=== PATIENT | female | born 1965 | race Caucasian/White ===

== ENCOUNTER 2024-11-27 07:12 | Day surgery (SDC) | payer OTHER, SELFPAY ==
[2024-11-27] VITALS (10 sets, daily range): BP systolic 113–145; BP diastolic 64–85; BMI 33.1
[2024-11-27] MEDS: LOW STRENGTH ASPIRIN 81 MG PO (08:00)
--- NOTE | 2024-11-27 15:32 | ITS.CL.PN ---
Addendum entered and electronically signed by Haroon Shirley MD 11/28/24 22:00:
Correction: access was 5F left distal radial artery (not right radial artery). The right radial artery was noted to be occluded on ultrasound. Distal left radial access with 5F sheath was selected in the hopes of minimizing risk of left radial
artery occlusion.
Original Note:
Bottom Liquor Attendant - Procedure Note
Procedure
Procedure Note:
CARDIAC CATHETERIZATION REPORT
Date of Procedure: 11/27/2024
Referring: Dr. Ricky Vieyra MD
Indication: severe aortic stenosis
PROCEDURE(S)
1. coronary angiography
ACCESS: 6F right radial artery (closure: radial band)
CATHETERS
1. 6F JR4
2. 6F JL3.5
MODERATE SEDATION: 20 minutes of moderate sedation was utilized. An independent medical transcription editor was present to assist with and help manage the patient's level of consciousness and physiologic status.
ULTRASOUND GUIDED VASCULAR ACCESS (right radial): Ultrasound was utilized for vascular access. The vessel was visualized under ultrasound and noted to be patent. An image of the vessel was stored permanently in the patient's medical record. Under
direct ultrasound guidance, vascular access was obtained using a modified Seldinger technique and a 6 Kyrgyz sheath was placed.
CORONARY ANGIOGRAPHY
Dominance: right
LM: large and normal
LAD: large vessel giving rise to a moderate caliber D1, small D2, and small D3. There are trivial luminal irregularities.
LCx: large vessel giving rise to a small OM1, large OM2, and moderate caliber OM3. There are trivial luminal irregularities.
RCA: large vessel giving rise to a large RPDA and very large RPL branch. There is mild non-obstructive disease.
RADIATION: dose 350 mGy; DAP 20.9 Gy*cm2; fluoroscopy time 4.8 min
CONCLUSIONS
1. Nonobstructive coronary artery disease in a right dominant system
RECOMMENDATIONS
1. expectant management after cardiac catheterization via right radial approach
2. proceed with workup for AVR
3. aggressive primary prevention of coronary artery disease
Copy to: Dr. Ricky Vieyra MD (internet cafe manager); Dr. Tanvi Hess MD (PCP)
Signed: Haroon Shirley MD, PhD
== END 2024-11-27 12:15 | disposition home or self-care (01) ==
LOC: CATH 07:12
PROVIDERS: ATTENDING PHYSICIAN Student in an Organized Health Care Education/Training Program; FAMILY PHYSICIAN Internal Medicine; OTHER PHYSICIAN Internal Medicine Cardiovascular Disease
DX: I25.10 Atherosclerotic heart disease of native coronary artery without angina pectoris (principal); I12.9 Hypertensive chronic kidney disease with stage 1 through stage 4 chronic kidney disease, or unspecified chronic kidney disease; N18.9 Chronic kidney disease, unspecified; E78.5 Hyperlipidemia, unspecified; Z79.82 Long term (current) use of aspirin
CPT/HCPCS: 99152; C1894; 76937; 93454; Q9967

== ENCOUNTER → 2024-12-04 09:10 | Outpatient (REF) | payer OTHER, SELFPAY | LOC: RAD 09:10 | PROVIDERS: ATTENDING PHYSICIAN Thoracic Surgery (Cardiothoracic Vascular Surgery); FAMILY PHYSICIAN Internal Medicine | DX: I35.0 Nonrheumatic aortic (valve) stenosis (principal); Z01.818 Encounter for other preprocedural examination | CPT/HCPCS: 75572; Q9967 ==

== ENCOUNTER 2024-12-12 04:59 | Inpatient (IN) | payer OTHER, SELFPAY ==
[2024-12-04 12:15] VITALS: BMI 33.6
[2024-12-04 12:55] LABS: % Eosinophils 2.2 % (0-6); % Immature Granulocytes 0.7 % (0-0.5); % Lymphocytes 23.5 % (20.5-51.1); % Monocytes 6.7 % (1.7-9.3); % Neutrophils 65.9 % (42.2-75.2); Absolute Basophils 0.1 10^3/uL (0-0.2); Absolute Eosinophils 0.2 10^3/uL (0-0.7); Absolute Immature Granulocytes 0.1 10^3/uL (0-0.05); Absolute Lymphocytes 2.4 10^3/uL (1.2-3.4); Absolute Monocytes 0.7 10^3/uL (0.1-0.6); Absolute Neutrophils 6.8 10^3/uL (1.4-6.5); Hematocrit 43.4 % (37.0-47.0); Hemoglobin 14.9 g/dL (12.0-16.0); Mean Corp Hgb Conc. 34.3 g/dL (33.0-37.0); Mean Corpuscular Hgb 30.7 pg (27.0-31.0); Mean Corpuscular Volume 89.5 fL (81.0-99.0); Mean Platelet Volume 10.4 fL (7.4-10.4); Nucleated Red Blood Cells % 0 %; Platelet Count 298 10^3/uL (130-400); Red Blood Cell Count 4.85 10^6/uL (4.20-5.40); Red Cell Dist. Width 13.4 % (11.5-14.5); White Blood Cell Count 10.3 10^3/uL (4.8-10.8)
[2024-12-04 12:57] LABS: Urine Albumin Trace (Neg - Trace); Urine Bilirubin Negative (Negative); Urine Character Slightly Cloudy (Clear); Urine Color Yellow; Urine Glucose Negative (Negative); Urine Ketone Trace (Negative); Urine Leukocyte Negative (Negative); Urine Nitrite Positive (Negative); Urine Occult Blood Negative (Negative); Urine Urobilinogen Negative (Neg - 1+)
[2024-12-04 13:11] LABS: Urine Bacteria Many (Negative); Urine Calcium Oxalate Crystals Present; Urine Red Blood Cell 0-2 /HPF (0-2); Urine Squamous Cell 0-2 /LPF (Few)
[2024-12-04 13:18] LABS: APTT 29.2 Sec (23.4-35.0); INR 1.12; PT 14.7 Sec (11.4-14.6)
[2024-12-04 13:22] LABS: ALT (SGPT) 23 U/L (0-35); AST (SGOT) 24 U/L (14-36); Albumin 4.6 g/dl (3.5-5.0); Alkaline Phosphatase 87 U/L (38-126); Blood Urea Nitrogen 19 mg/dl (7-17); Calcium 9.7 mg/dl (8.4-10.2); Carbon Dioxide 22 mmol/L (22-30); Chloride 105 mmol/L (98-107); Direct Bilirubin 0.1 mg/dl (0.0-0.4); Estimated Creatinine Clearance 71 ml/min; Glucose 90 mg/dl (70-99); Potassium 3.9 mmol/L (3.5-5.1); Sodium 139 mmol/L (135-145); Total Bilirubin 0.7 mg/dl (0.2-1.3); Total Protein 7.3 g/dl (6.3-8.2); eGFR > 60.00
--- NOTE | 2024-12-04 13:58 | CM ---
Chart reviewed. Met with the patient in PAT. 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 Patient is independent of ADLS, lives with her and son in a split level home, 1 MERRY, 0 DME. Reviewed preoperative and postoperative instructions and
restrictions, along with showering guidelines. Gave patient 2 soaps. Patient is agreeable to a home visit by CT Transitional RN. Plan is for the patient to return home with CT Transitional RN. CM to follow
[2024-12-04 14:25] LABS: Glycohemoglobin (HgbA1c) 5.4 % (4.0-5.6)
[2024-12-12] VITALS (13 sets, daily range): BP systolic 82–113; BP diastolic 55–66; BMI 32.8
[2024-12-12] MEDS: PROTONIX 40 MG PO (05:40)
[2024-12-12] MEDS: LOPRESSOR 25 MG PO (05:40)
[2024-12-12] MEDS: MAGNESIUM OXIDE 500 MG PO (05:40)
[2024-12-12] MEDS: BACTROBAN 2% OINTMENT 1 APPLIC NASAL ×2 (05:42→20:05)
--- NOTE | 2024-12-12 06:21 | W.CVOR.SURPR ---
CVOR Surgeon Immed Pre Op
-
I have examined this patient prior to performance of the scheduled procedure.
The patient's condition is unchanged from the time of the dictated/written History and
Physical and the patient is able to undergo the scheduled procedure.
Sternotomy AVR with likely aortic root enlargement
--- NOTE | 2024-12-12 06:31 | PTCARENOTE ---
Patient admitted into room 2266. Full admission completed, pt confirmed 2 showers at home and NPO since midnight. Pt clipped, washed with CHG, med rec completed, meds given. All questions answered. Pt speaks Kyrgyz mostly but can understand
Hebrew. Awaiting CVOR.
[2024-12-12 08:06] LABS: ACT+ - POC 104 Seconds (82-134)
[2024-12-12 08:08] LABS: B.E. - POC -2.2 mmol/L; Glucose - POC 90 mg/dl (70-99); HCO3 - POC 23 mmol/L (21-28); Hematocrit - POC 37 % PCV (37-47); Hemodilution- POC No; Hemoglobin Calculated - POC 12.4; Ionized Calcium - POC 1.26 mmol/L (1.15-1.33); O2 Saturation %Calculated-POC 99.7 % (94-98); PCO2 - POC 41 mmHg (35-48); PO2 - POC 211 mmHg (83-108); POC Comment PRE; Potassium - POC 3.6 mmol/L (3.5-5.1); Sodium - POC 145 mmol/L (136-145); Specimen Type - POC Arterial; pH - POC 7.36 (7.35-7.45)
[2024-12-12 08:15] LABS: Urine Albumin 1+ (Neg - Trace); Urine Bilirubin Negative (Negative); Urine Character Clear (Clear); Urine Color Yellow; Urine Glucose Negative (Negative); Urine Ketone 2+ (Negative); Urine Leukocyte Negative (Negative); Urine Nitrite Negative (Negative); Urine Occult Blood Negative (Negative); Urine Urobilinogen Negative (Neg - 1+)
[2024-12-12 08:26] LABS: Urine Red Blood Cell 0-2 /HPF (0-2); Urine Squamous Cell 0-2 /LPF (Few); Urine White Cell 0-2 /HPF (0-5)
[2024-12-12 08:27] LABS: Urine Bacteria Few (Negative); Urine Mucus Few
[2024-12-12 09:18] LABS: ACT+ - POC 600 Seconds (82-134)
[2024-12-12 09:40] LABS: ACT+ - POC 568 Seconds (82-134)
[2024-12-12 10:05] LABS: Glucose - POC 86 mg/dl (70-99); HCO3 - POC 26 mmol/L (21-28); Hematocrit - POC 27 % PCV (37-47); Hemodilution- POC Yes; Hemoglobin Calculated - POC 9.3; Lactate - POC < 0.30 mmol/L (0.36-0.75); PCO2 - POC 35 mmHg (35-48); PO2 - POC 388 mmHg (83-108); POC Comment CPB; Potassium - POC 4.2 mmol/L (3.5-5.1); Sodium - POC 143 mmol/L (136-145); Specimen Type - POC Arterial; pH - POC 7.47 (7.35-7.45)
--- NOTE | 2024-12-12 10:19 | CM ---
Chart reviewed. Patient is in the OR today. Patient is independent of ADLS, lives with her in a split level home, 1 MERRY, 0 DME. Plan is for the patient to return home with CT Transitional RN. CM to follow
[2024-12-12 10:24] LABS: B.E. - POC 0.8 mmol/L; Glucose - POC 101 mg/dl (70-99); HCO3 - POC 26 mmol/L (21-28); Hematocrit - POC 29 % PCV (37-47); Hemodilution- POC Yes; Ionized Calcium - POC 1.09 mmol/L (1.15-1.33); O2 Saturation %Calculated-POC 99.9 % (94-98); PCO2 - POC 45 mmHg (35-48); PO2 - POC 318 mmHg (83-108); POC Comment CPB; Potassium - POC 3.9 mmol/L (3.5-5.1); Sodium - POC 143 mmol/L (136-145); Specimen Type - POC Arterial; pH - POC 7.38 (7.35-7.45)
[2024-12-12 10:33] LABS: ACT+ - POC 479 Seconds (82-134)
[2024-12-12 10:51] LABS: B.E. - POC 0.2 mmol/L; Glucose - POC 120 mg/dl (70-99); HCO3 - POC 25 mmol/L (21-28); Hematocrit - POC 29 % PCV (37-47); Hemodilution- POC Yes; Hemoglobin Calculated - POC 9.9; O2 Saturation %Calculated-POC 99.9 % (94-98); PCO2 - POC 41 mmHg (35-48); PO2 - POC 331 mmHg (83-108); POC Comment CPB; Potassium - POC 4.1 mmol/L (3.5-5.1); Sodium - POC 143 mmol/L (136-145); Specimen Type - POC Arterial
[2024-12-12 11:00] LABS: ACT+ - POC 458 Seconds (82-134)
[2024-12-12 11:15] LABS: B.E. - POC -1.3 mmol/L; Glucose - POC 122 mg/dl (70-99); HCO3 - POC 23 mmol/L (21-28); Hematocrit - POC 29 % PCV (37-47); Hemodilution- POC Yes; Hemoglobin Calculated - POC 9.9; Ionized Calcium - POC 1.11 mmol/L (1.15-1.33); O2 Saturation %Calculated-POC 99.9 % (94-98); PCO2 - POC 36 mmHg (35-48); PO2 - POC 317 mmHg (83-108); POC Comment WARM; Potassium - POC 4.4 mmol/L (3.5-5.1); Sodium - POC 145 mmol/L (136-145); Specimen Type - POC Arterial; pH - POC 7.41 (7.35-7.45)
[2024-12-12] MEDS: ANCEF 10 IV ×2 (11:16)
[2024-12-12 11:20] LABS: ACT+ - POC 104 Seconds (82-134)
[2024-12-12 11:43] LABS: Glucose - POC 111 mg/dl (70-99); HCO3 - POC 23 mmol/L (21-28); Hematocrit - POC 28 % PCV (37-47); Hemodilution- POC Yes; Hemoglobin Calculated - POC 9.5; Ionized Calcium - POC 1.36 mmol/L (1.15-1.33); O2 Saturation %Calculated-POC 98.6 % (94-98); PCO2 - POC 36 mmHg (35-48); PO2 - POC 115 mmHg (83-108); POC Comment POST; Potassium - POC 3.5 mmol/L (3.5-5.1); Sodium - POC 143 mmol/L (136-145); Specimen Type - POC Arterial; pH - POC 7.42 (7.35-7.45)
--- NOTE | 2024-12-12 11:56 | W.PN.CT.SURG ---
CT Surgery Operative Note
-
CARDIAC SURGERY OPERATIVE REPORT
Preoperative Diagnosis: Aortic valve stenosis with bicuspid valve morphology, symptomatic
Postoperative Diagnosis: Same
Procedure(s) Performed:
1. Standard aortic and right atrial cannulation
2. Aortic root enlargement and aortoplasty (Monica)
3. Aortic valve replacement [23 mm bioprosthesis]
4. Placement temporary ventricular pacing wire
5. Transesophageal echocardiography
Date of Surgery: 12/12/2024
Comorbidities:
1. Bicuspid aortic valve morphology with severe aortic valve stenosis, symptomatic
2. Nonobstructive CAD
3. Hypertension
4. Hyperlipidemia
5. Morbidly obese with a BMI of greater than 30
6. Anxiety/depression
7. Diastolic dysfunction with mild left ventricular hypertrophy
Attending Surgeon: Ferny Irizarry MD, MS
Assistants: Alessandra Emerson PA-C (present and necessary to first leveler, retraction, suction, exposure, suture management, and wound closure under my direction)
Anesthesiology: Eduar Ramirez MD and Jesus Austin CRNA
Scrub and Circulating RNs: Lowell Interiano RN, Elaine Garrido RN
Engraver Tender: John Phillips CCP
Anesthesia: GETA
EBL: per perfusion records
Products: None
CPB Time: 108 minutes
Aortic Cross Clamp Time: 94 minutes
Indication(s) for Procedures: This is a 59-year-old female with known aortic valve stenosis. She was discovered to have bicuspid aortic valve morphology with severe stenosis that was symptomatic over the last 6 months. Given her symptoms, young
age, lifetime planning for aortic valve was necessary. Plan is to pursue aortic valve replacement with possible aortic root enlargement and wants facilitate TAVR in the future.
Aortic Valve Description: Bicuspid aortic valve, fused left and right coronary cusp, heavily calcified with infiltration into the annulus, annulus was extremely small accommodating a 19 mm sizer. Left and right coronary ostia in the normal anatomic
positions although low as seen on the TAVR CT scan.
Findings: Left ventricular ejection fraction preoperatively was normal at 60% with no significant regional wall motion abnormalities. She did have mild left ventricular hypertrophy and her mean gradient under anesthesia was over 40 mmHg. Following
surgery EF was 65 to 70%, she was hyperdynamic with no new regional wall motion abnormalities. Her valve was heavily calcified with evidence of infiltration into the annulus with large calcium boulders mostly towards the noncoronary cusp. Her left
and right coronary cusp were fused. Her left and right coronary ostia were in the normal anatomic positions although low. I elected to perform a Jesus Anne aortic root enlargement by cutting down through the noncoronary annulus onto the aorto
mitral curtain after the abdominal left atrium off of the base/root/sinus. A large bovine pericardial patch was then fashioned and sewn into place using 4-0 Prolene effectively enlarging her root as well as her sinus and STJ. The aortic
valve was secured into place using a total of 10 nonpledgeted 2 Ethibond sutures and 5 pledgeted 2 Ethibond sutures at the level of the patch. Both left and right coronary ostia were found to be unobstructed and I oriented the struts of the valve
to be well away from both ostia. The patch was then carried up along the aortotomy towards the AP window. After coming off cardiopulmonary bypass there is no paravalvular leak. The mean gradient while she was hyperdynamic was 11 mmHg which then
calm down to 7 mmHg at the end of the case. She did not require any blood products, she did not require any inotropic support, she was in sinus rhythm.
Specimen(s): Aortic Valve.
Prosthesis:
1. 23mm QIU Inspiris Resilia Aortic Valve, SN [id number].
2. Bovine pericardial patch, serial number [id number]
Description of Procedure: The patient was taken to the operating room. Their identity and procedure to be performed were verified and they were positioned supine on the operating table. Induction via general anesthesia with endotracheal intubation
was performed and central venous access and arterial monitoring were inserted. A preoperative transesophageal echocardiogram was performed to assess cardiac function and valvular function. The patient was then prepped and draped from chin to feet in
a sterile fashion. A preoperative time-out was performed with all members of the team present. A midline chest incision was performed along with median sternotomy. The innominate vein was isolated. Full heparinization was given (a total of 45,000
units). We created a pericardial well. The aortic cannulation site was chosen where it was soft, pliable, and free of calcium. Cannulation was performed with an arterial cannula in the ascending aorta and a triple-stage venous cannula through the
right atrial appendage. The arterial cannula line had an appropriate bounce and correlating pressures with test dosing. Next, a root vent/antegrade cannula was inserted into the ascending aorta. The ACT was confirmed to be over 400 and retrograde
autologous priming was performed before commencing cardiopulmonary bypass. The pulmonary artery was away from the aorta to facilitate a clamp site and aortotomy. A left ventricular vent was placed at the right superior pulmonary vein and
secured. The aortic cross-clamp was placed after decreasing the flow on the bypass and mean arterial pressure. A total of 1.2L initial dose of antegrade Del-Nido cardioplegia solution was given and planned for re-dosing every 60 minutes as
necessary. There was rapid electro-mechanical arrest of the heart at 300 cc of cardioplegia. The left ventricle was observed for distention on echocardiogram and manual palpation. Cold slush was placed into a sponge and topically on the RV while we
systemically cooled to 34 degrees centigrade.
Carbon dioxide was used to flood the field. We manually identified the location of the right coronary take off. An aortotomy was made approximately 2cm above the sinotubular junction. The location of both left and right coronary vessels were
visualized in the root.The leaflets were excised and sent for pathological assessment. The annulus was debrided of any calcium being mindful of the annulus and membranous septum. The root and left ventricular outflow tract were thoroughly irrigated
to remove any debris. The dome of the left atrium was mobilized off of the noncoronary sinus in preparation for possible aortic root enlargement. At this point I could only fit a [address] and so the aortotomy incision was then carried
down the noncoronary sinus into the annulus of the noncoronary cusp onto the aorto mitral curtain. A large bovine pericardial patch was then fashioned into a teardrop shape. Using 4-0 Prolene, the kenyatta of the patch was then sutured into place at
the apex of the root enlargement incision. This was then tied down and the ends of the suture were brought up on each side towards the kotlik aorta. A total of 5 pledgeted 2-0 Ethibond sutures were placed at the level of the patch (outside to in)
and 10 non-pledgeted 2-0 ethibond as well as inverted annular sutures were placed [id number] circumferentially. These were brought through the sewing cuff of the prosthetic valve which as then parachuted into place. I oriented the sutures in
order to move the commissures away as best I could from the coronary ostia. The left and right coronary ostia were visualized and were unobstructed by the valve. A Cor-Knot device was used to secure the annular sutures. The valve was inspected and
was well seated. The aortotomy was reapproximated to the bovine pericardial patch using the 4-0 sutures in a running fashion being sure to imbricate the patch underneath the inside of the aorta. A absorbable sealant was then injected onto the
suture line after turning off all vents. He was given approximately 1 to 2 minutes to cure while de-airing maneuvers were performed and temporary bipolar ventricular pacing wires were placed on the base of the right ventricle. The patient was
placed in a Trendelenburg position and flows on bypass were lowered. The aortic cross clamp was removed and flows were slowly brought back up. The aortotomy and patch appeared hemostatic. Transesophageal echocardiography revealed no paravalvular
leak and appropriate prosthetic function. Once de-airing was satisfactory, the left ventricular and root vents were removed. After verifying acceptable parameters, we initiated weaning from cardiopulmonary bypass. Once we were off cardiopulmonary
bypass, the venous cannula was clamped and removed. A test dose of protamine was administered and the patient was monitored for any adverse reaction before resuming protamine. Once half of the protamine dose was delivered, pump suckers were turned
off and the systolic blood pressure was lowered for aortic decannulation. The aortic cannula was removed and pursestrings were tied down. All cannulation sites were oversewn with a 4-0 prolene. The aortotomy suture line was inspected and hemostasis
was confirmed. Mediastinal hemostasis was obtained. Two 24Fr Erickson drains were placed within the pericardium. The pericardium over lying the aorta was loosely closed with Vicryl sutures. The sternum was approximated with 4#7 single and 3 #8 double
stainless steel wires. Fascia was approximated with #1 vicryl suture. The subcutaneous, dermis and epidermis were closed in layers in a running fashion. The skin wound was cleansed and dressed.
All instrument, sponge, and needle counts were confirmed to be correct x 2 at the end of the operation. The patient was transferred to the cardiac intensive care unit in critical but stable condition.
I, Dr. Ferny Irizarry, was present, scrubbed for, and performed all critical elements of this procedure.
Ferny Irizarry MD, MS
Cardiothoracic Surgeon
[facility]
This operative dictation was created using the Mac[employer] dictation system. Please excuse any grammatical, typographical, or 'sound alike' errors
[2024-12-12] MEDS: VITAMIN D3 (cholecalciferol) PO (11:59)
[2024-12-12] MEDS: NEURONTIN PO ×2 (11:59→15:15)
[2024-12-12] MEDS: NSS 500 IV (12:00)
--- NOTE | 2024-12-12 12:10 | PTCARENOTE ---
Pt arrived from CVOR to CVICU at 1200. Pt is intubated and sedated on Precedex. Currently SR with HR 60. BP 96/41 MAP 60. CVP 12. Currently on Levo 2mcg/min. Epicardial V wire in place set to 60/10/2, currently box is on but unhooked from pacing
wire. Bilateral pedal and radial pulses palpable. Core temperature 97.1, Mimi hugger in place. Pulse oximetry 91%. Intubated with #8 ET tube 25cm right lip. Vent set to SIMV FiO2 40%, RR 14, TV 500, PEEP 5, Pressure Support 5. Mediastinal chest
tubes x2 in place draining red drainage, no sign of air leak. Crepitus noted in left/right upper chest. Bowel sounds hypoactive. Peralta catheter in place draining yellow urine, Peralta care completed. Midsternal incision approximated with surgical
adhesive. Right IJ cordis and SLIC in place. Left brachial [place] intact. Pt remains on insulin gtt per glycemic protocol. Post-op EKG completed, x-ray notified for portable, labs collected.
[2024-12-12 12:15] LABS: Glucose - Point of Care 123 mg/dl (70-99)
--- NOTE | 2024-12-12 12:15 | W.PN.UPDATE ---
Update Note
Progress Note Update
IV fluids: 1300
Crystalloid:� 1100
U.O.:� 700
UF:� 1000
Blood:� None
Wires:� Ventricular
Inotropes:� None
Pressors:� +/- Levophed
Sedatives:� Precedex
�
NEURO: sedated on precedex, pupils +2mm B/L
RESP: #8OT @24cm> 500/40%/14/5. Lungs clear B/L. 2 mediastinal/LP (25cc on arrival) chest tubes to -20cm suction. Sanguineous drainage
CV: RRR +S1, S2, no S3, no�rub, no murmur. Dermabond to median sternotomy. RIJ w/slicc
ABD: round, soft, no BS
EXT: no edema, +2/4 DP pulses B/L, no femoral bruit, left brachial A-line intact
: Peralta with clear yellow urine
�
A/P: POD #0 s/p AVR w/ inspiris fam #23mm and root enlargement
LAYO: EF�hyperdynamic
- wean and extubate
- Monitor CT and urine output
- Follow up labs and CXR
- Wean levophed for maps >65 (goal SBP 90-120s)
- Will start ASA tonight
- EKG pending and will send to cards
- Cards consulted
- will need instruction regarding antibiotic prophylaxis for dental and invasive procedures
�
# acute surgical blood loss anemia-expected
- trend CBC
�
# Hyperlipidemia
- resume�statin when tolerating PO
[2024-12-12 12:23] LABS: B.E. -0.4 mmol/L; HCO3 24.1 mmol/L (21-28); Hematocrit 31.4 % (37.0-47.0); Hemoglobin 10.7 g/dL (12.0-16.0); Ionized Calcium 1.25 mMOL/L (1.15-1.33); O2 Saturation % 95.1 % (94-98); PCO2 38 mmHg (32-35); PO2 68 mmHg (83-108); Platelet Count 160 10^3/uL (130-400); Potassium 3.5 mMOL/L (3.5-5.1); Sodium 141 mMOL/L (136-145); pH 7.41 (7.35-7.45)
[2024-12-12] MEDS: LR 250 ML IV ×3 (12:30→17:15)
[2024-12-12 12:37] LABS: INR 1.37; PT 17.4 Sec (11.4-14.6)
[2024-12-12 12:38] LABS: APTT 29.2 Sec (23.4-35.0)
[2024-12-12 12:42] LABS: Blood Urea Nitrogen 12 mg/dl (7-17); Estimated Creatinine Clearance 92 ml/min; Glucose 115 mg/dl (70-99); Magnesium 3.1 mg/dl (1.6-2.3)
[2024-12-12] MEDS: KCL 50 IV ×2 (12:46→13:42)
[2024-12-12 13:08] LABS: Glucose - Point of Care 108 mg/dl (70-99)
--- NOTE | 2024-12-12 13:29 | PTCARENOTE ---
500mL LR bolus administered. Pt currently off Levo. BP 110/71 MAP 86. CVP 15. Remains SR with HR 66. Pulse oximetry 97%, vent settings unchanged from prior assessment. Labs reviewed. Potassium being replaced per order. Post-op X-ray completed. Pt
awoke briefly following commands.
--- NOTE | 2024-12-12 13:48 | CON.INTV ---
Consultation
Consultation Request
Date/Time Consultation Requested: 12/12
Date/Time Consultation Performed: 12/12
Reason for Consultation: Critical care
Medical History
-
History of Present Illness:
History obtained from the chart as patient is currently intubated and sedated. Patient is a 59-year-old female who was recently hospitalized in early November 2024. She had a cardiac catheterization which showed normal coronaries. She was being
worked up for aortic stenosis and is now status post bioprosthetic AVR 12/12 without complication. We are asked to help from critical care standpoint.
.
PMH: Aortic stenosis awaiting surgery, hyperlipidemia, chronic kidney disease, absent of right radial pulse since prior catheterization 2020, history of UTIs
Past Medical History
Past Medical History: None (See above)
Past Surgical History: None (See above)
Social History
Tobacco: Former Smoker
Alcohol: Occasional
Drug: None
Personal:
Living: With Family
Employment: Employed (radiology assistant)
Family History
Family History: Other (Father at 89, mother at 87. 1 sister from cancer, 1 son healthy)
Allergies / Home Medications
Allergies
Allergy/AdvReac Type Severity Reaction Status Date / Time
No Known Allergies Allergy Verified 12/03/24 13:59
Home Medications
�Medication �Instructions �Recorded �Confirmed �Last Taken �Type
alprazolam 0.5 mg tablet 0.5 mg PO HS Mental Health/Anxiety 11/27/24 12/12/24 12/11/24 20:00 History
aspirin 81 mg chewable tablet 81 mg PO HS Blood Clot 11/27/24 12/12/24 12/11/24 08:00 History
Prevention/Tx
atorvastatin 40 mg tablet 40 mg PO HS High Cholesterol 11/27/24 12/12/24 12/06/24 08:00 History
bisacodyl 5 mg tablet 5 mg PO HS Constipation 11/27/24 12/12/24 12/11/24 08:00 History
cholecalciferol (vitamin D3) 125 5,000 unit PO DAILY Supplement 11/27/24 12/12/24 12/09/24 08:00 History
mcg (5,000 unit) tablet (Vitamin
D3)
cranberry extract 250 mg tablet 250 mg PO DAILY Supplement 11/27/24 12/12/24 12/11/24 08:00 History
linaclotide 290 mcg capsule 290 mcg PO HS 11/27/24 12/12/24 12/11/24 08:00 History
(Linzess)
nebivolol 5 mg tablet 5 mg PO DAILY Blood Pressure 11/27/24 12/12/24 12/11/24 08:00 History
valerian root 100 mg capsule 100 mg PO HS 11/27/24 12/12/24 12/11/24 20:00 History
Review of Systems
-
Unable to Obtain full review of systems at this time due to: Patient Intubation
Vitals / Labs / Diagnostic Testing
Vital Signs
Temp Pulse Resp BP Pulse Ox
96.9 F L 64 14 128/92 95
12/12/24 13:00 12/12/24 13:00 12/12/24 13:00 12/12/24 05:40 12/12/24 13:14
Lab Data
12/12/24 12:13
Laboratory Results
12/12/24
12:13
PT 17.4 H
INR 1.37
APTT 29.2
pH 7.41
pCO2 38 H
pO2 68 L
HCO3 24.1
O2 Delivery Level
Diagnostic Testing:
Physical Exam
-
HEENT: Normocephalic and Anicteric
Cardiovascular: S1/S2, Regular Rhythm, Murmur (n), Rub (n) and Peripheral Edema (n)
Respiratory: Wheeze (n), Rales (n), Rhonchi (n) and Non-Labored Respirations
GI: Soft and Non Distended
Neurology: Other (Sedated)
Skin: Other (IJ, A-line, chest tube)
General: Comfortable
Assessment
-
59-year-old female with history of progressive aortic stenosis, found to have preserved LV function, noncritical coronary disease. She is status post bioprosthetic AVR on 12/12/2024 without complication.
S/p Bio P aortic valve replacement 12/12/2024
Severe aortic stenosis
Normal LV function, nonobstructive coronary disease
Postoperative anemia
1.2 cm right middle lobe nodule
Per CT chest 12/04/2024
Hyperlipidemia
Plan/recommendations
At this time, patient appears to be comfortable
Presently on volume-cycled ventilation, FiO2 40%
Chest exam is clear, no rub
Chest tube output minimal
Postoperative EKG and chest x-ray within normal limits
Mild crepitus on exam noted
Moving forward
Continue with management per CT surgery
Chest x-ray is unremarkable, no obvious subcutaneous air noted
Follow clinically
Anticipate extubation later today
Aspirin therapy per CT surgery
intermittent norepinephrine requirement noted, wean as able
1.2 cm right middle lobe nodule noted. Coronary CT
Would recommend PET scan versus follow-up CT chest and pulmonary follow-up
Follow-up information left in chart
We will continue to follow
TCCT 31 min
[2024-12-12] MEDS: TYLENOL PO (13:59)
[2024-12-12 14:04] LABS: Glucose - Point of Care 97 mg/dl (70-99)
[2024-12-12 14:53] LABS: Glucose - Point of Care 108 mg/dl (70-99)
[2024-12-12] MEDS: PACERONE PO ×2 (15:15→22:41)
[2024-12-12 15:44] LABS: Glucose - Point of Care 109 mg/dl (70-99)
[2024-12-12 15:50] LABS: B.E. -0.9 mmol/L; HCO3 23.5 mmol/L (21-28); Ionized Calcium 1.19 mMOL/L (1.15-1.33); O2 Saturation % 98.8 % (94-98); PCO2 37 mmHg (32-35); PO2 107 mmHg (83-108); Potassium 4.3 mMOL/L (3.5-5.1); pH 7.41 (7.35-7.45)
[2024-12-12 16:06] LABS: Hematocrit 33.4 % (37.0-47.0); Hemoglobin 11.5 g/dL (12.0-16.0); Platelet Count 207 10^3/uL (130-400)
[2024-12-12] MEDS: DILAUDID 0.5 MG IV (16:19)
--- NOTE | 2024-12-12 16:32 | PTCARENOTE ---
CPAP trial initiated at 1508. ABG collected and reviewed. Extubated to 6L nasal cannula at 1608. Pulse oximetry 95%. Pt able to state name and , moves all extremities appropriately. Pt remains SR with HR 65. Currently BP 102/60 MAP 76. CVP 7.
Levo 4mcg/min. Remains on insulin gtt per glycemic protocol. Mediastinal chest tubes x2 in place, no sign of air leak, crepitus no longer present. Pt with complaints of sternal and back pain, PRN Dilaudid administered per order.
[2024-12-12] MEDS: CALCIUM GLUCONATE 100 IV (17:33)
[2024-12-12] MEDS: LOW STRENGTH ASPIRIN 81 MG PO (17:34)
--- NOTE | 2024-12-12 17:44 | PTCARENOTE ---
Levo 5mcg/min. BP 99/57 MAP 72. CVP 6. Discussed with CT [employer] ADMINISTRATOR, Yesika. Additional 250 LR bolus administered. iCal 1.19, PRN Calcium gluconate administered. Pulse oximetry 98% on 4L nasal cannula.
[2024-12-12 17:59] LABS: Glucose - Point of Care 104 mg/dl (70-99)
[2024-12-12] MEDS: ALBUMIN 5% 250 IV ×2 (18:12→22:21)
[2024-12-12] MEDS: TORADOL 15 MG IV (18:23)
[2024-12-12] MEDS: ANCEF 5 IV (20:05)
[2024-12-12] MEDS: SENOKOT-S 1 TABLET PO (20:06)
[2024-12-12] MEDS: ROXICODONE 5 MG PO (20:06)
[2024-12-12 20:40] LABS: Glucose - Point of Care 107 mg/dl (70-99)
[2024-12-12 20:41] LABS: B.E. -1.5 mmol/L; HCO3 22.8 mmol/L (21-28); Ionized Calcium 1.28 mMOL/L (1.15-1.33); O2 Saturation % 98.7 % (94-98); PCO2 36 mmHg (32-35); PO2 101 mmHg (83-108); Potassium 4.1 mMOL/L (3.5-5.1); pH 7.41 (7.35-7.45)
[2024-12-12 20:44] LABS: Mixed Venous O2 Saturation 69.1 %
--- NOTE | 2024-12-12 21:00 | PTCARENOTE ---
Report received from AWILDA Felton. Walking rounds done. Pt drowsy yet easily arouses to voice. Speech clear. Moves extremities equally. LANDON Adkins at bedside to talk with pt in both Angolan and Ukranian. Pt oriented x 4. She states she does
understand Angolan.
BBS present. Diminished breath sounds anteriorly and to bases. CDB encouraged. Shallow breathing due to pain. Sats 96-97% on 2L/NC.
Pt c/o 7/10 upper back pain. Roxicodone 5 mg given for pain.
Audible heart tones. Pt in SR, 60's. Prolonged QTc on post op EKG. Levo gtt as high as 4 mcg/min. Decreased to 3.5 mcg/min to maintain SBP 90-110 mmHG. CVP 7-9. For pulse and wound assessments, see flowsheets. Mediastinal CTs x 2 to -20 cm suction.
Surgibra intact. V wire present. MVO2 and ABG with lytes drawn and sent per order.
Belly soft, nontender. Hypoactive bowel sounds x 4. Peralta to drain, clear yellow urine. Hourly UO and CT outputs recorded.
Glycemic protocol followed. Ongoing plan of care. Farzaneh and his at bedside. Updated on care.
[2024-12-12 22:01] LABS: Glucose - Point of Care 97 mg/dl (70-99)
[2024-12-12] MEDS: LIPITOR 40 MG PO (22:23)
[2024-12-12] MEDS: TYLENOL 1000 MG PO (22:23)
[2024-12-12] MEDS: NEURONTIN 100 MG PO (22:23)
--- NOTE | 2024-12-12 22:30 | PTCARENOTE ---
BP down to 80's/50's with movement. CVP ~ 7. LANDON Adkins at bedside. Albumin 5% 250 mls ordered and given. See MAR. Gabapentin and Tylenol po given for pain-scheduled.
[2024-12-12 23:29] LABS: Glucose - Point of Care 109 mg/dl (70-99)
[2024-12-13] VITALS (31 sets, daily range): BP systolic 89–121; BP diastolic 60–78; BMI 35.3
[2024-12-13] MEDS: TORADOL 15 MG IV ×3 (00:10→18:51)
[2024-12-13 00:23] LABS: Glucose - Point of Care 108 mg/dl (70-99)
[2024-12-13] MEDS: LR 250 ML IV ×2 (00:38→06:18)
--- NOTE | 2024-12-13 00:44 | PTCARENOTE ---
Toradol 15 mg IV for 6 c/o sternal and B/L upper back pain.
UO for past hour was 10 mls. PA aware. Levo gtt increased to 4 mcg/min. LR bolus of 250 mls IV given per PA order. (CVP ~9-10 prior to bolus) PA at bedside with pt.
[2024-12-13 01:32] LABS: Glucose - Point of Care 110 mg/dl (70-99)
[2024-12-13 01:37] LABS: HCO3 20.8 mmol/L (21-28); Ionized Calcium 1.27 mMOL/L (1.15-1.33); O2 Saturation % 98.6 % (94-98); PCO2 36 mmHg (32-35); PO2 110 mmHg (83-108); Potassium 3.9 mMOL/L (3.5-5.1); pH 7.37 (7.35-7.45)
[2024-12-13 01:40] LABS: Mixed Venous O2 Saturation 71.3 %
[2024-12-13] MEDS: SODIUM BICARBONATE 50 MEQ IV (02:14)
[2024-12-13 02:28] LABS: Glucose - Point of Care 101 mg/dl (70-99)
[2024-12-13] MEDS: DILAUDID 0.5 MG IV (02:33)
--- NOTE | 2024-12-13 02:41 | PTCARENOTE ---
Sodium Bicarbonate 50 meq given per order. Dilaudid 0.5 mg IV given for 7/10 pain to sternum and B/L upper back.
[2024-12-13 03:37] LABS: B.E. -2.7 mmol/L; HCO3 22.6 mmol/L (21-28); Ionized Calcium 1.28 mMOL/L (1.15-1.33); O2 Saturation % 98.8 % (94-98); PCO2 40 mmHg (32-35); PO2 108 mmHg (83-108); pH 7.36 (7.35-7.45)
[2024-12-13 03:41] LABS: Hematocrit 30.7 % (37.0-47.0); Hemoglobin 10.2 g/dL (12.0-16.0); Mean Corp Hgb Conc. 33.2 g/dL (33.0-37.0); Mean Corpuscular Hgb 30.4 pg (27.0-31.0); Mean Corpuscular Volume 91.4 fL (81.0-99.0); Mean Platelet Volume 10.5 fL (7.4-10.4); Platelet Count 216 10^3/uL (130-400); Red Blood Cell Count 3.36 10^6/uL (4.20-5.40); Red Cell Dist. Width 13.7 % (11.5-14.5); White Blood Cell Count 17.9 10^3/uL (4.8-10.8)
[2024-12-13] MEDS: ANCEF 5 IV ×2 (03:56→12:43)
[2024-12-13] MEDS: LEVOPHED 250 IV (03:56)
[2024-12-13 04:03] LABS: Blood Urea Nitrogen 16 mg/dl (7-17); Calcium 8.9 mg/dl (8.4-10.2); Carbon Dioxide 23 mmol/L (22-30); Chloride 109 mmol/L (98-107); Estimated Creatinine Clearance 72 ml/min; Glucose 106 mg/dl (70-99); Magnesium 2.5 mg/dl (1.6-2.3); Potassium 3.9 mmol/L (3.5-5.1); Sodium 140 mmol/L (135-145); eGFR > 60.00
--- NOTE | 2024-12-13 04:17 | PTCARENOTE ---
Labs drawn and sent. PA with results. Levo up to 6 mcg/min, titrated down to 4 mcg/min to maintain SBP 90-110.
[2024-12-13 04:37] LABS: Glucose - Point of Care 107 mg/dl (70-99)
[2024-12-13] MEDS: TYLENOL 1000 MG PO ×3 (06:18→21:40)
[2024-12-13 06:34] LABS: Glucose - Point of Care 104 mg/dl (70-99)
--- NOTE | 2024-12-13 07:00 | PTCARENOTE ---
Repeat LR 250 ml bolus per order of PA. High Flow applied at 0620. 30L/50% O2 per order pf PA for moderate sized R pneumothorax. Pt denies dyspnea. Pt stated at 0635 that she felt 'funny'. Denies pain, denies dyspnea. Blood glucose 104. Pt lower lip
and legs shaking at times. LANDON Adkins in to see pt. BP increased at 115-122 systolic. Levo gtt titrated off. Sats 95-100% on High FLow O2. BBS present. PA talked with pt. Warm blankets provided. Positive affirmations given on her overall course
post op. Pt became calmer. Report to AWILDA Felton this am. EL pff levo gtt 100's systolic.
--- NOTE | 2024-12-13 07:29 | W.PN.CT ---
Today's Communication / Plan
-
-pod #1
-no significant issues overnight. Owen shaky this am - ? possibly anxiety, felt better with warm blanket and reassurance
-new finding of R PTX on CXR this am. Pt had no hypoxia overnight - pOx 98% on 2L. Per Dr. Irizarry, started on high flow 30L 50% fiO2 and will re-check CXR at 9 am
-mVO2 71.3. Drips: Levo 3, Insulin
-low UO intermittently - improved with IVF and keeping MAP>70 (total 1 L LR and 500 Albumin)
-hold BB and Amio while on Levo, hr low 60s
-wean off Levo as tolerated
-maintain a-line, pw, Cordis, Peralta for critical I&O
-current meds (ASA, Lipitor, iv Iron, Protonix)
-encourage IS, OOB
Assessment / Plan
-
- Symptomatic aortic valve stenosis with bicuspid valve morphology- s/p Aortic root enlargement and aortoplasty (Monica); Aortic valve replacement [23 mm QIU Inspiris Resilia bioprosthesis]
by Dr. Irizarry on 12/12/24, pod #1
- Intraop LAYO: LVEF preop was normal at 60% with no significant regional wma. She did have mild left ventricular hypertrophy and her mean gradient under anesthesia was over 40 mmHg. Following surgery, EF was 65 to 70%, she was hyperdynamic with no
new regional wma. After coming off cardiopulmonary bypass, there was no paravalvular leak. The mean gradient while she was hyperdynamic was 11 mmHg, which then calm down to 7 mmHg at the end of the case.
- Bicuspid aortic valve morphology with severe aortic valve stenosis, symptomatic
- Nonobstructive CAD
- Hypertension
- Hyperlipidemia
- Class 1 obesity, BMI 33
- Anxiety/depression
- Diastolic dysfunction with mild left ventricular hypertrophy
- Preop Klebsiella UTI - treated with Augmentin
- Acute postop blood loss anemia - stable, no transfusion
- Acute postop atelectasis
- Acute postop hypovolemia with subsequent hypervolemia
- Acute postop R PTX
Discussed patient care with: Nursing and Care Team
Subjective
-
Date of Service: December 13, 2024
Objective Data
-
PT 17.4 Sec (11.4-14.6) H 12/12/24 12:13
INR 1.37 12/12/24 12:13
APTT 29.2 Sec (23.4-35.0) 12/12/24 12:13
Vital Signs
Vital Signs
Temp Pulse Resp BP Pulse Ox
99.7 F 62 17 95/65 99
12/12/24 23:00 12/12/24 23:30 12/12/24 23:30 12/12/24 23:00 12/12/24 23:30
CT Intake/Output/Weight
12/12/24 12/12/24 12/13/24
06:59 18:59 06:59
Intake Total 1465.3 / 1854.4 389.1 / 1854.4
Output Total 950 / 1130 180 / 1130
Balance 515.3 / 724.4 209.1 / 724.4
SaO2: 99
Physical Exam
-
General: Awake and AOx3
Cardiovascular: Regular rate & rhythm, No Murmurs and Rub
Respiratory: Decreased Breath Sounds
Sternum: Stable
Incision: Clean, Dry and Intact
Extremities: No Edema (1+ DPs b/l)
Abdomen: soft, nontender, nondistended, +decreased bowel sounds
Data Reviewed
-
Lab Results: Results Reviewed
Medications: Active Meds Reviewed
Chest X-Ray: Report Reviewed and Image Reviewed
ECG: Report Reviewed and Image Reviewed
--- NOTE | 2024-12-13 07:44 | W.PN.CD ---
Today's Communication / Plan
-
Agree with high-flow nasal canula.
Serial CXR.
Chest tube/pain management per CT surgery.
Incentive spirometry.
Ambulate when appropriate.
Impression / Plan
-
Impression/Plan: 59 y/o female with HLD, non-obstructive CAD and severe admitted for elective SAVR.
#Severe aortic valve stenosis
-Chronic, progressive.
-S/P SAVR (#23 Marlow Inspiris Resilia Aortic Valve, SN [id number]) and Jesuss-Anne aortic root enlargement with bovine pericardial patch (SN [id number]) with Dr. Irizarry, 12/12/2024.
-Right PTX seen on CXR. No air leak seen in chest tubes. High-flow nasal canula started. Serial chest XR. Pain/chest tube management per CT surgery.
-Encourage incentive spirometry.
-Ambulate when appropriate.
-Intermittent pressors with RA pressure of 8 mmHg but weight up 6.4 kg suggests a significant degree of third spacing.
-No role for diuretics yet.
-Titrate pressors/inotropes to MAP > 65 mmHg, CI > 1.8 L/min/m2.
#HLD
-Chronic, stable.
-Continue atorvastatin.
-Goal LDL < 55.
#CAD
-Chronic, non-obstructive.
-Primary prevention with risk factor modification, treatment of HLD as above.
Critical Care Time = 41 minutes.
Subjective/Interval History:
SAVR yesterday.
Extubated to AR.
CXR this morning shows moderate, right sided PTX. She was started on high-flow nasal canula.
On and off of norepinephrine for BP support.
Weight is up 6.4 kg from baseline.
RAP remains ~ 8 mmHg.
DATA:
Cardiac Catheterization, 11/27/2024:
CORONARY ANGIOGRAPHY
Dominance: right
LM: large and normal
LAD: large vessel giving rise to a moderate caliber D1, small D2, and small D3. There are trivial luminal irregularities.
LCx: large vessel giving rise to a small OM1, large OM2, and moderate caliber OM3. There are trivial luminal irregularities.
RCA: large vessel giving rise to a large RPDA and very large RPL branch. There is mild non-obstructive disease.
Intraprocedural LAYO, 12/12/2024:
CONCLUSIONS
Severe aortic stenosis, severely calcified valve and annulus, trivial to mild
aortic regurgitation. Annulus 22 mm.
Normal left ventricular size and systolic function, mild LVH, stage I diastolic
function.
The aorta has atheroma less than 5 mm and mild calcifications.
Trace MR. Trace TR.
POST OPERATIVE FINDINGS
Status post aortic root enlargement and aortic valve replacement with 23 mm
bioprosthetic aortic valve. The valve is well-seated, no perivalvular leak,
leaflets are functioning well, mean gradient 7 mmHg. No intra valvular
regurgitation.
Hyperdynamic left ventricle with EF 70 to 75%, no regional wall motion
abnormalities seen.
Normal right ventricular size and function.
Trivial to mild MR and TR. The rest of the study is unchanged.
Physical Exam
Vital Signs/Labs
Vital Signs
Temp Pulse Resp BP Pulse Ox
37.5 C 68 19 101/64 96
12/13/24 07:00 12/13/24 07:30 12/13/24 07:30 12/13/24 07:00 12/13/24 07:30
12/11/24 12/12/24 12/13/24
11:59 11:59 11:59
Actual Weight 86.7 kg 93.1 kg
12/13/24 03:14
12/13/24 03:14
PT 17.4 Sec (11.4-14.6) H 12/12/24 12:13
INR 1.37 12/12/24 12:13
APTT 29.2 Sec (23.4-35.0) 12/12/24 12:13
Magnesium 2.5 mg/dl (1.6-2.3) H 12/13/24 03:14
Physical Exam
Constitutional: No acute distress and Comfortable
EENT: Anicteric and Moist mucous membranes
Cardiovascular: Rhythm & rate is regular and S1S2 is normal
Respiratory: Respiratory effort normal and Other (Decreased throughout, absent in the RUL.)
GI: Soft, Distention absent, Flat, Non tender and Normal bowel sounds
Neuro/Psych: AO x 3
Data Reviewed
-
Date of Service: December 13, 2024
Medical Decision Making: Reviewed Test Results, Independent Historian Assessment and Test Interpretation
EKG: Tracing Personally Visualized and interpreted and Report Reviewed by me
Echo: Report Reviewed by me
X-Ray/CT/US/MRI/NUC/PET: Image Personally Visualized and interpreted and Report Reviewed by me
Medical Tests (PFT, Pathology etc): Report Reviewed by me
Labs: Labs Reviewed by me
Old Records: Reviewed
--- NOTE | 2024-12-13 08:06 | W.PN.INTV ---
Today's Communication / Plan
Recommendations
High flow oxygen, right apical pneumothorax noted
Minimal crepitus
Splinting noted. 95% on 2 L, 95% on high flow
Remains on norepinephrine, being weaned
A-line remains in place
Follow blood sugars, on insulin drip
Assessment
-
59-year-old female with history of progressive aortic stenosis, found to have preserved LV function, noncritical coronary disease. She is status post bioprosthetic AVR on 12/12/2024 without complication.
S/p Bio P aortic valve replacement 12/12/2024
Severe aortic stenosis
Normal LV function, nonobstructive coronary disease
Postoperative anemia
1.2 cm right middle lobe nodule
Per CT chest 12/04/2024
Hyperlipidemia
Plan/recommendations
At this time, patient appears to be comfortable
Extubated without difficulty, remains on high flow oxygen
Splinting on exam noted
95% on 2 L
95% on 45 L/high flow
Chest exam is clear
Chest tube output minimal
Postoperative EKG and chest x-ray within normal limits
Mild crepitus on exam noted
Chest x-ray with small right apical pneumothorax
Moving forward
Continue with management per CT surgery
Chest x-ray is unremarkable, no obvious subcutaneous air noted
Small right apical pneumothorax noted
Presently remains on high flow oxygen
Aspirin therapy per CT surgery
Remains on norepinephrine this morning, being weaned A-line remains in place
Splinting on exam noted
Pain control
1.2 cm right middle lobe nodule noted. Coronary CT
Would recommend follow-up imaging, follow-up with pulmonary
Follow-up information left in chart
We will follow
TCCT 31 min
Subjective Dataa
Subjective Data
Date of Service:
Date of Service: December 13, 2024
Subjective:
Patient examined earlier today. Late entry. Patient complaining of shortness of breath and chest discomfort. Plumber Pipe Fitting/family at bedside. Remains on high flow, saturation 95%. Appears comfortable
Objective Data
Data Reviewed
Vital Signs / I&O / Oxygen:
Vital Signs
Temp Pulse Resp BP Pulse Ox
99.5 F 68 19 101/64 96
12/13/24 07:00 12/13/24 07:30 12/13/24 07:30 12/13/24 07:00 12/13/24 07:30
Intake and Output
12/12/24 12/13/24 12/14/24
06:59 06:59 06:59
Intake Total 2750.4 / 2750.4
Output Total 1335 / 1335
Balance 1415.4 / 1415.4
SaO2 [CPAP] 97
SaO2 [SIMV] 94
SaO2 96
Nasal Cannula flow liters per 30
minute
Physical Exam
General: Comfortable and Other (IJ, chest tube, A-line)
HEENT: Normocephalic and Anicteric
Cardiovascular: S1-S2, Regular Rhythm, Murmur (n) and Rub (n)
Respiratory: Wheeze (n), Crackles (n), Rhonchi (n) and Non-Labored Respirations
GI: Soft, Non Distended and Non Tender
Neurology: Awake, Alert and No Motor Deficits (Moving extremities)
Skin: Good Color and Rash (n)
Labs/Micro/Reports
Lab Data
12/13/24 03:14
12/13/24 03:14
Laboratory Results
12/12/24 12/12/24 12/12/24
12:13 15:38 20:26
PT 17.4 H
INR 1.37
APTT 29.2
pH 7.41 7.41 7.41
pCO2 38 H 37 H 36 H
pO2 68 L 107 101
HCO3 24.1 23.5 22.8
O2 Delivery Level
12/13/24 12/13/24
01:15 03:14
PT
INR
APTT
pH 7.37 7.36
pCO2 36 H 40 H
pO2 110 H 108
HCO3 20.8 L 22.6
O2 Delivery Level
--- NOTE | 2024-12-13 08:30 | PTCARENOTE ---
Assumed care of patient at 0700. Pt is awake, alert, and oriented. Pt remains SR with HR 70's. BP 99/55 MAP 71. Remains off Levo. Epicardial V wire in place set to 60/10/2, box turned on wire unhooked from box. Pulse oximetry 95% on highflow 40%
40L. Mediastinal chest tubes x2 in place, no sign of air leak or crepitus. Bowel sounds hypoactive. Pt tolerating water. Peralta catheter in place draining yellow urine. Peralta care completed. Midsternal incision approximated and HOTEL OR MOTEL CLEANING SUPERVISOR. Right IJ cordis
in place with SLIC. Left brachial Narvon intact. Bilateral pedal and radial pulses palpable. Pt remains on Insulin gtt per glycemic protocol. Pt with call gross within reach.
[2024-12-13 08:36] LABS: Glucose - Point of Care 90 mg/dl (70-99)
[2024-12-13] MEDS: SENOKOT-S 1 TABLET PO ×2 (08:52→21:40)
[2024-12-13] MEDS: LOW STRENGTH ASPIRIN 81 MG PO (08:52)
[2024-12-13] MEDS: MAGNESIUM OXIDE 500 MG PO ×2 (08:52→21:39)
[2024-12-13] MEDS: ROXICODONE 5 MG PO ×3 (08:52→21:41)
[2024-12-13] MEDS: VITAMIN D3 (cholecalciferol) 125 MCG PO (08:52)
[2024-12-13] MEDS: PROTONIX 40 MG PO (08:52)
[2024-12-13] MEDS: NEURONTIN 100 MG PO ×3 (08:52→21:40)
[2024-12-13] MEDS: LIDOCAINE 4% PATCH TOPICAL (08:52)
[2024-12-13] MEDS: FLEXERIL 5 MG PO (08:52)
--- NOTE | 2024-12-13 08:52 | W.PN.ANS.POP ---
Anesthesia Post Operative
- Anesthesia Post Op Note
Vital Signs Stable-See Nursing Note: Yes
Airway Patent: Yes
Adequate Pain Control: Yes
Change in Mental Status: No
Current Postoperative Nausea & Vomiting: No
Anesthesia Complications: No
General Anesthetic Recall: No
Unplanned Admission: No
Post Op Hydration Adequate: Yes
- -
Pt awake and alert-resting with no anesthesia related c/o at time of post op visit. VSS
[2024-12-13] MEDS: BACTROBAN 2% OINTMENT 1 APPLIC NASAL ×2 (08:53→21:39)
[2024-12-13 11:21] LABS: Glucose - Point of Care 91 mg/dl (70-99)
--- NOTE | 2024-12-13 12:07 | CM ---
Chart reviewed. Patient lying in bed with visitors at bedside. 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 Plan is for the patient to return home with CT Transitional RN. CM to
follow
[2024-12-13] MEDS: NSS IV (12:34)
--- NOTE | 2024-12-13 12:45 | PTCARENOTE ---
Left brachial Juana d/c'd by CT REGIONAL LOSS PREVENTION MANAGER, Nereida. Right IJ SLIC d/c'd. Insulin gtt d/c'd per order. Pt remains SR with HR 70's. BP 113/68 MAP 81. Pulse oximetry 95% on high flow. Assisted pt OOB to chair tolerated well.
[2024-12-13 12:47] LABS: Glucose - Point of Care 93 mg/dl (70-99)
[2024-12-13] MEDS: FERRLECIT 110 MG IV (13:23)
--- NOTE | 2024-12-13 16:30 | PTCARENOTE ---
Pt assisted back to bed without issue. Pt remains SR with HR 70's. BP 104/72 MAP 83. Pulse oximetry 96% on high flow. Urine output low, CT CONSTRUCTION ANALYST Nereida, made aware.
[2024-12-13] MEDS: PACERONE 200 MG PO (16:58)
[2024-12-13] MEDS: LASIX 40 MG IV (18:45)
--- NOTE | 2024-12-13 18:53 | PTCARENOTE ---
40mg IV Lasix administered per order.
--- NOTE | 2024-12-13 21:00 | PTCARENOTE ---
Report from AWILDA Felton. Pt assessed and VS recorded. Pt awake, alert, oriented x 4. Speech clear. Understands and speaks Malay. No facial asymmetry. Equal extremity strength x 4.
Pt on High Flow NC, 50%, 50L. Sats 92-97%. BBS present. Decreased to B bases. CDB and IS done. 500-1000L. Pt with occasional moist nonproductive cough. No c/o dyspnea.
Audible heart tones. Pt in SR, 70's. BP normotensive. For pulse and wound assessments, see flowsheets. V wire with pacing cable next to temp PPM in case of emergency.
Belly soft, nontender. Poor appetite. Hypoactive bs x 4
Peralta to drain, clear, yellow urine. Hourly I&O's.
Roxicodone 5 mg at 2145 given for 6/10 upper back pain.
Pt given CHG bath. Gown and leads changed. Pt helped with bath. Peralta care and mouth care done.
Ongoing plan of care.
[2024-12-13] MEDS: LOPRESSOR 12.5 MG PO (21:39)
[2024-12-13] MEDS: LIPITOR 40 MG PO (21:40)
[2024-12-14] VITALS (44 sets, daily range): BP systolic 65–127; BP diastolic 46–94; PULSE 80; O2SAT 96–108; BMI 34.5
--- NOTE | 2024-12-14 00:30 | PTCARENOTE ---
Updated LANDON Yo on BP after 1st dose of lopressor 90-94 systolic. HR 60's, QT interval 0.48 sec. OK to give evening amiodarone given.
[2024-12-14] MEDS: TORADOL 15 MG IV (00:57)
[2024-12-14] MEDS: PACERONE 200 MG PO ×4 (01:00→22:00)
--- NOTE | 2024-12-14 04:30 | PTCARENOTE ---
Labs drawn this am and sent.
[2024-12-14 04:45] LABS: Hematocrit 28.9 % (37.0-47.0); Hemoglobin 9.8 g/dL (12.0-16.0); Mean Corp Hgb Conc. 33.9 g/dL (33.0-37.0); Mean Corpuscular Hgb 31.4 pg (27.0-31.0); Mean Corpuscular Volume 92.6 fL (81.0-99.0); Mean Platelet Volume 10.9 fL (7.4-10.4); Platelet Count 176 10^3/uL (130-400); Red Blood Cell Count 3.12 10^6/uL (4.20-5.40); Red Cell Dist. Width 13.9 % (11.5-14.5); White Blood Cell Count 15.1 10^3/uL (4.8-10.8)
[2024-12-14 05:11] LABS: Blood Urea Nitrogen 24 mg/dl (7-17); Carbon Dioxide 28 mmol/L (22-30); Chloride 103 mmol/L (98-107); Estimated Creatinine Clearance 61 ml/min; Glucose 87 mg/dl (70-99); Magnesium 2.4 mg/dl (1.6-2.3); Potassium 3.8 mmol/L (3.5-5.1); Sodium 139 mmol/L (135-145); eGFR 57.88
--- NOTE | 2024-12-14 05:25 | W.PN.CT ---
Today's Communication / Plan
-
-pod #2
-no significant issues overnight
-Med CT's with 65/185 for 12/24 hrs., discontinue today
-R PTX on CXR this am. Pt had no hypoxia overnight - pOx 95% on 40%HFNC. CXR with unchanged vs. slightly larger right pneumothorax.
-low UO intermittently this morning but output 1300/1485 for 12/24 hrs.
-creat 1.1 from 0.9, will follow
-tolerated BB and Amio
-current meds (ASA, Lipitor, iv Iron, Protonix)
-encourage IS, OOB
Assessment / Plan
-
- Symptomatic aortic valve stenosis with bicuspid valve morphology- s/p Aortic root enlargement and aortoplasty (Monica); Aortic valve replacement [23 mm QIU Inspiris Resilia bioprosthesis]
by Dr. Irizarry on 12/12/24, pod #2
- Intraop LAYO: LVEF preop was normal at 60% with no significant regional wma. She did have mild left ventricular hypertrophy and her mean gradient under anesthesia was over 40 mmHg. Following surgery, EF was 65 to 70%, she was hyperdynamic with no
new regional wma. After coming off cardiopulmonary bypass, there was no paravalvular leak. The mean gradient while she was hyperdynamic was 11 mmHg, which then calm down to 7 mmHg at the end of the case.
- Bicuspid aortic valve morphology with severe aortic valve stenosis, symptomatic
- Nonobstructive CAD
- Hypertension
- Hyperlipidemia
- Class 1 obesity, BMI 33
- Anxiety/depression
- Diastolic dysfunction with mild left ventricular hypertrophy
- Preop Klebsiella UTI - treated with Augmentin
- Acute postop blood loss anemia - stable, no transfusion
- Acute postop atelectasis
- Acute postop hypovolemia with subsequent hypervolemia
- Acute postop R PTX
Subjective
Procedure
s/p Aortic root enlargement and aortoplasty (Monica); Aortic valve replacement [23 mm QIU Inspiris Resilia bioprosthesis]
by Dr. Irizarry on 12/12/24
-
Date of Service: December 14, 2024
Objective Data
-
Lab Results
12/14/24 04:35
12/14/24 04:35
PT 17.4 Sec (11.4-14.6) H 12/12/24 12:13
INR 1.37 12/12/24 12:13
APTT 29.2 Sec (23.4-35.0) 12/12/24 12:13
Vital Signs
Vital Signs
Temp Pulse Resp BP Pulse Ox
98.3 F 67 12 105/70 95
12/14/24 01:00 12/14/24 04:15 12/14/24 04:15 12/14/24 04:00 12/14/24 04:48
CT Intake/Output/Weight
12/13/24 12/13/24 12/14/24
06:59 18:59 06:59
Intake Total 1285.1 / 2771.1 182.7 / 282.7 100 / 282.7
Output Total 385 / 1360 305 / 1670 1365 / 1670
Balance 900.1 / 1411.1 -122.3 / -1387.3 -1265 / -1387.3
SaO2: 95
Physical Exam
-
General: AOx3
Cardiovascular: Regular rate & rhythm
Respiratory: Decreased Breath Sounds
Sternum: Stable
Incision: Clean, Dry and Intact
Extremities: No Edema
--- NOTE | 2024-12-14 06:40 | PTCARENOTE ---
Pt helped up to sitting position. C/O transient dizziness. BP 106 systolic. Pt helped to standing scale with 2 RNs. Pt then helped to recliner chair. Sats 87-88%. RT called to evaluate High FLow. Pt on 30L/50% High flow per RT. Sats up to 92-96%.
Report to Chanelle this am. Walking rounds done.
[2024-12-14] MEDS: TYLENOL 1000 MG PO ×3 (06:44→22:00)
[2024-12-14] MEDS: KCL 20 MEQ PO ×2 (06:47→22:00)
--- NOTE | 2024-12-14 07:50 | W.PN.INTV ---
Today's Communication / Plan
Recommendations
Chest tube per IR
Pain control
Out of bed to chair, ambulate
Will require follow-up with regards to right lower lobe nodule. Information left in chart
Patient transferred out of ICU. We will sign off. Please call with questions
Assessment
-
59-year-old female with history of progressive aortic stenosis, found to have preserved LV function, noncritical coronary disease. She is status post bioprosthetic AVR on 12/12/2024 without complication.
S/p Bio P aortic valve replacement 12/12/2024
Severe aortic stenosis
Normal LV function, nonobstructive coronary disease
Postoperative anemia
Small right apical pneumothorax postoperatively
1.2 cm right middle lobe nodule
Per CT chest 12/04/2024
Hyperlipidemia
Plan/recommendations
At this time, patient appears to be comfortable
No crepitus
Splinting on exam noted
Oxygenation adequate
Chest exam is clear
Chest tube output minimal
Postoperative EKG and chest x-ray within normal limits
Chest x-ray with small right apical pneumothorax, persistent
Moving forward
Continue with management per CT surgery
Chest x-ray is unremarkable, no obvious subcutaneous air noted
Small right apical pneumothorax noted
Plan for IR chest tube
Aspirin therapy per CT surgery
Weaned off pressors
Splinting on exam noted
Pain control
1.2 cm right middle lobe nodule noted. Coronary CT
Would recommend follow-up imaging, follow-up with pulmonary
Follow-up information left in chart
Patient transferred out of ICU. We will sign off. Please call with questions
Subjective Dataa
Subjective Data
Date of Service:
Date of Service: December 14, 2024
Subjective:
Patient sitting in chair, appears comfortable. Mild splinting noted. Denies significant shortness of breath. Chest tube without airleak.
Objective Data
Data Reviewed
Vital Signs / I&O / Oxygen:
Vital Signs
Temp Pulse Resp BP Pulse Ox
98.3 F 72 15 114/69 94
12/14/24 01:00 12/14/24 07:15 12/14/24 07:15 12/14/24 07:00 12/14/24 07:15
Intake and Output
12/13/24 12/14/24 12/15/24
06:59 06:59 06:59
Intake Total 2750.4 / 2771.1 302.7 / 302.7
Output Total 1335 / 1360 1715 / 1715
Balance 1415.4 / 1411.1 -1412.3 / -1412.3
SaO2 [CPAP] 97
SaO2 [SIMV] 94
SaO2 94
Nasal Cannula flow liters per 40
minute
Physical Exam
General: Comfortable and Other (IJ, chest tube)
HEENT: Normocephalic and Anicteric
Cardiovascular: S1-S2, Regular Rhythm, Murmur (n) and Rub (n)
Respiratory: Wheeze (n), Crackles (n), Rhonchi (n) and Non-Labored Respirations
GI: Soft, Non Distended and Non Tender
Neurology: Awake, Alert and No Motor Deficits (Moving extremities)
Skin: Good Color and Rash (n)
Labs/Micro/Reports
Lab Data
12/14/24 04:35
12/14/24 04:35
--- NOTE | 2024-12-14 09:00 | PTCARENOTE ---
Patient received from dry roller resting oob in chair, AAO x 3, states pain controlled at this time. Patient ESL, communicates well in Ukrainian. RIJ Cordis w/kvo infusing. Epicardial V-wire, secured to temp pacer box. Mediastinal chest tubes x 2,
Y-connected to one pleurevac - set to -20cm suction w/no air leak noted. Peralta catheter d/c'd as ordered. All procedural sites stable. Patient updated to plan of care for the day, in agreement. Breakfast ordered. See work list for full assessment
and interventions performed.
[2024-12-14] MEDS: LIDOCAINE 4% PATCH TOPICAL (09:16)
[2024-12-14] MEDS: BACTROBAN 2% OINTMENT 1 APPLIC NASAL ×2 (09:20→20:16)
[2024-12-14] MEDS: NEURONTIN 100 MG PO ×3 (09:20→22:01)
[2024-12-14] MEDS: VITAMIN D3 (cholecalciferol) 125 MCG PO (09:20)
[2024-12-14] MEDS: LOW STRENGTH ASPIRIN 81 MG PO (09:20)
[2024-12-14] MEDS: PROTONIX 40 MG PO (09:20)
[2024-12-14] MEDS: LOPRESSOR 12.5 MG PO ×2 (09:20→20:16)
[2024-12-14] MEDS: MAGNESIUM OXIDE 500 MG PO (09:21)
[2024-12-14] MEDS: SENOKOT-S 1 TABLET PO ×2 (09:21→20:16)
--- NOTE | 2024-12-14 10:55 | W.PN.CD ---
Today's Communication / Plan
-
IR consult for pigtail for PTX.
Ambulate.
Incentive spirometry.
Cautious introduction of GDMT/diuretics.
Impression / Plan
-
Impression/Plan: 59 y/o female with HLD, non-obstructive CAD and severe admitted for elective SAVR.
#Severe aortic valve stenosis
-Chronic, progressive.
-S/P SAVR (#23 Marlow Inspiris Resilia Aortic Valve, SN [id number]) and Monica aortic root enlargement with bovine pericardial patch (SN [id number]) with Dr. Irizarry, 12/12/2024.
-Encourage incentive spirometry.
-Ambulate when appropriate.
-Intermittent pressors with RA pressure of 8 mmHg but weight up 6.4 kg suggests a significant degree of third spacing.
-Titrate pressors/inotropes to MAP > 65 mmHg, CI > 1.8 L/min/m2.
-Pain/chest tube management per CT surgery.
#PTX
-Acute, increased from yesterday on CXR.
-IR consulted for pigtail placement.
-Continue high-flow oxygen.
#HLD
-Chronic, stable.
-Continue atorvastatin.
-Goal LDL < 55.
#CAD
-Chronic, non-obstructive.
-Primary prevention with risk factor modification, treatment of HLD as above.
Critical Care Time = 38 minutes.
Subjective/Interval History:
BP's remain tenuous.
Furosemide 40 mg IV given yesterday.
Weight down 2.1 kg from yesterday.
Metoprolol restarted at 12.5 mg BID.
Apical PTX is mildly increased from yesterday.
DATA:
Cardiac Catheterization, 11/27/2024:
CORONARY ANGIOGRAPHY
Dominance: right
LM: large and normal
LAD: large vessel giving rise to a moderate caliber D1, small D2, and small D3. There are trivial luminal irregularities.
LCx: large vessel giving rise to a small OM1, large OM2, and moderate caliber OM3. There are trivial luminal irregularities.
RCA: large vessel giving rise to a large RPDA and very large RPL branch. There is mild non-obstructive disease.
Intraprocedural LAYO, 12/12/2024:
CONCLUSIONS
Severe aortic stenosis, severely calcified valve and annulus, trivial to mild
aortic regurgitation. Annulus 22 mm.
Normal left ventricular size and systolic function, mild LVH, stage I diastolic
function.
The aorta has atheroma less than 5 mm and mild calcifications.
Trace MR. Trace TR.
POST OPERATIVE FINDINGS
Status post aortic root enlargement and aortic valve replacement with 23 mm
bioprosthetic aortic valve. The valve is well-seated, no perivalvular leak,
leaflets are functioning well, mean gradient 7 mmHg. No intra valvular
regurgitation.
Hyperdynamic left ventricle with EF 70 to 75%, no regional wall motion
abnormalities seen.
Normal right ventricular size and function.
Trivial to mild MR and TR. The rest of the study is unchanged.
Physical Exam
Vital Signs/Labs
Vital Signs
Temp Pulse Resp BP Pulse Ox
36.8 C 75 20 108/75 98
12/14/24 08:45 12/14/24 10:45 12/14/24 10:15 12/14/24 10:26 12/14/24 10:15
12/12/24 12/13/24 12/14/24
11:59 11:59 11:59
Actual Weight 86.7 kg 93.1 kg 91 kg
12/14/24 04:35
12/14/24 04:35
PT 17.4 Sec (11.4-14.6) H 12/12/24 12:13
INR 1.37 12/12/24 12:13
APTT 29.2 Sec (23.4-35.0) 12/12/24 12:13
Magnesium 2.4 mg/dl (1.6-2.3) H 12/14/24 04:35
Physical Exam
Constitutional: No acute distress and Comfortable
EENT: Anicteric and Moist mucous membranes
Cardiovascular: Rhythm & rate is regular, Pedal edema is absent, JVD pressure is normal, S1S2 is normal and Murmur/rub/gallop absent
Respiratory: Respiratory effort normal and Other (RUL breath sounds are absent.)
GI: Soft, Distention absent, Flat, Non tender and Normal bowel sounds
Neuro/Psych: AO x 3
Data Reviewed
-
Date of Service: December 14, 2024
Medical Decision Making: Reviewed Test Results, Independent Historian Assessment and Test Interpretation
EKG: Tracing Personally Visualized and interpreted and Report Reviewed by me
Echo: Report Reviewed by me
X-Ray/CT/US/MRI/NUC/PET: Image Personally Visualized and interpreted and Report Reviewed by me
Medical Tests (PFT, Pathology etc): Report Reviewed by me
Labs: Labs Reviewed by me
Old Records: Reviewed
[2024-12-14] MEDS: NSS IV (11:57)
[2024-12-14] MEDS: LASIX 40 MG IV (12:21)
--- NOTE | 2024-12-14 12:27 | PTCARENOTE ---
Epicardial pacing wire d/c'd by KLAUS Figueredo, patient tolerated well. Bedrest maintained x 1 hour, VS obtained per protocol Mediastinal chest tubes d/c'd as ordered. Patient resting comfortably.
[2024-12-14] MEDS: FERRLECIT 110 MG IV (13:27)
--- NOTE | 2024-12-14 15:00 | PTCARENOTE ---
Patient transported to IR for procedure via stretcher.
--- NOTE | 2024-12-14 16:11 | W.PN.UPDATE ---
Update Note
Progress Note Update
- 12F anterior right chest tube placed with fluoro guidance
- Placed to -20 suction
- Pt tolerated well.
[2024-12-14] MEDS: ROXICODONE 5 MG PO (16:47)
--- NOTE | 2024-12-14 20:00 | PTCARENOTE ---
Patient received at 1900, OOB in chair, family at bedside. Oriented x 3, pain an acceptable level at this time, denies need for PRN pain medications. SR on the monitor, rates 60's, trace lower extremity and hand edema, pulses palpable. Lungs
diminished at the bases, on 2LNC, R apical CT in place to -20 cm wall suction, no air leak, tidaling, or crepitus noted. Patient tolerated dinner, hypoactive BS. Voiding without difficulty. Surgical sites CDI. Plan of care discussed, patient in
agreement. See nursing worklist for full intervention details.
[2024-12-14] MEDS: MAGNESIUM OXIDE PO ×2 (20:16→20:22)
[2024-12-14] MEDS: LIPITOR 40 MG PO (22:00)
[2024-12-15] VITALS (10 sets, daily range): BP systolic 99–117; BP diastolic 59–87; PULSE 68; O2SAT 97–98; BMI 34.0
--- NOTE | 2024-12-15 | PTCARENOTE ---
Assessment unchanged, patient sleeping between care.
--- NOTE | 2024-12-15 03:44 | W.PN.CT ---
Today's Communication / Plan
-
Plan:
-No major issues overnight. Hemodynamically and neurologically intact
-Pt with postop right pneumothorax S/P 12F pigtail placement by IR yesterday 12/14 with resolution of ptx
-Chest tube is on -20 cmh2o wall suction without air leak, minimal drainage
-Cxr this AM does not show ptx on my review, f/U official report
-Will discuss chest tube to waterseal vs clamping
-D/C cordis
-Cont. current meds (ASA, Lipitor, Amiodarone, Lopressor, Protonix)
-Mg is 2.5, will place mag oxide on hold
-Encourage use of IS
-Wean off of O2
-OOB into chair/Ambulate
-Home in 1-2 days
Assessment / Plan
-
- Symptomatic aortic valve stenosis with bicuspid valve morphology- s/p Aortic root enlargement and aortoplasty (Monica); Aortic valve replacement [23 mm QIU Inspiris Resilia bioprosthesis]
by Dr. Irizarry on 12/12/24, pod #3
- Intraop LAYO: LVEF preop was normal at 60% with no significant regional wma. She did have mild left ventricular hypertrophy and her mean gradient under anesthesia was over 40 mmHg. Following surgery, EF was 65 to 70%, she was hyperdynamic with no
new regional wma. After coming off cardiopulmonary bypass, there was no paravalvular leak. The mean gradient while she was hyperdynamic was 11 mmHg, which then calm down to 7 mmHg at the end of the case.
- Bicuspid aortic valve morphology with severe aortic valve stenosis, symptomatic
- Nonobstructive CAD
- Hypertension
- Hyperlipidemia
- Class 1 obesity, BMI 33
- Anxiety/depression
- Diastolic dysfunction with mild left ventricular hypertrophy
- Preop Klebsiella UTI - treated with Augmentin
- Acute postop blood loss anemia - stable, no transfusion
- Acute postop atelectasis
- Acute postop hypovolemia with subsequent hypervolemia
- Acute postop R PTX S/P right 12F pigtail chest tube placement by IR, 12/14/24
Discussed patient care with: Cardiology, Nursing, Respiratory Therapy, Pharmacy and Care Team
Subjective
Procedure
s/p Aortic root enlargement and aortoplasty (Monica); Aortic valve replacement [23 mm QIU Inspiris Resilia bioprosthesis]
by Dr. Irizarry on 12/12/24
-
Date of Service: December 15, 2024
Pt c/o mild incisional pain, otherwise feels well
Objective Data
-
PT 17.4 Sec (11.4-14.6) H 12/12/24 12:13
INR 1.37 12/12/24 12:13
APTT 29.2 Sec (23.4-35.0) 12/12/24 12:13
Vital Signs
Vital Signs
Temp Pulse Resp BP Pulse Ox
98 F 65 18 99/59 95
12/15/24 00:00 12/15/24 00:00 12/15/24 00:00 12/15/24 00:00 12/15/24 00:00
CT Intake/Output/Weight
12/14/24 12/14/24 12/15/24
06:59 18:59 06:59
Intake Total 120 / 302.7 720 / 730 10 / 730
Output Total 1410 / 1715 2110 / 2110
Balance -1290 / -1412.3 -1390 / -1380 10 / -1380
SaO2: 95 (2L)
Physical Exam
-
General: Awake, Oriented and AOx3
Cardiovascular: Regular rate & rhythm, No Murmurs, No Rub and No Gallop
Respiratory: Decreased Breath Sounds (on right, otherwise clear)
Sternum: Stable
Incision: Clean, Dry, Intact and Dressing Intact
Extremities: Other (+trace edema)
Data Reviewed
-
Lab Results: Results Reviewed
Medications: Active Meds Reviewed
Chest X-Ray: Report Reviewed and Image Reviewed
ECG: Report Reviewed and Image Reviewed
[2024-12-15 04:04] LABS: Ionized Calcium 1.19 mMOL/L (1.15-1.33)
--- NOTE | 2024-12-15 04:05 | PTCARENOTE ---
Patient OUP 350 mL this shift at the time of this note. Urine otpt at 0355 concentrated, mele. CVPA aware. Patient made comfortable, endorsed 7/10 pain, denied pain meds offered, positioned in bed and made comfortable. Call gross within reach.
[2024-12-15 04:09] LABS: Hematocrit 29.8 % (37.0-47.0); Hemoglobin 9.8 g/dL (12.0-16.0); Mean Corp Hgb Conc. 32.9 g/dL (33.0-37.0); Mean Corpuscular Hgb 30.6 pg (27.0-31.0); Mean Corpuscular Volume 93.1 fL (81.0-99.0); Mean Platelet Volume 10.8 fL (7.4-10.4); Platelet Count 207 10^3/uL (130-400); Red Cell Dist. Width 13.5 % (11.5-14.5); White Blood Cell Count 13.3 10^3/uL (4.8-10.8)
[2024-12-15 04:30] LABS: Blood Urea Nitrogen 28 mg/dl (7-17); Calcium 8.6 mg/dl (8.4-10.2); Carbon Dioxide 30 mmol/L (22-30); Chloride 99 mmol/L (98-107); Estimated Creatinine Clearance 74 ml/min; Glucose 88 mg/dl (70-99); Magnesium 2.5 mg/dl (1.6-2.3); Potassium 4.1 mmol/L (3.5-5.1); Sodium 137 mmol/L (135-145); eGFR > 60.00
[2024-12-15] MEDS: TYLENOL PO ×2 (05:11→05:14)
[2024-12-15] MEDS: CALCIUM GLUCONATE 100 IV (05:11)
[2024-12-15] MEDS: TYLENOL 1000 MG PO ×3 (06:20→21:52)
--- NOTE | 2024-12-15 07:07 | W.PN.INTV ---
Today's Communication / Plan
Recommendations
Chest tube management per CT surgery, pneumothorax improved
Pain control, out of bed to chair
Discussed with patient and son right lung nodule and importance for follow-up and possibility of cancer
Patient does have a history of smoking according to the son
Pulmonary information left in chart for follow-up
We will sign off. Please call with questions
Assessment
-
59-year-old female with history of progressive aortic stenosis, found to have preserved LV function, noncritical coronary disease. She is status post bioprosthetic AVR on 12/12/2024 without complication.
S/p Bio P aortic valve replacement 12/12/2024
Severe aortic stenosis
Normal LV function, nonobstructive coronary disease
Postoperative anemia
Small right apical pneumothorax postoperatively
1.2 cm right middle lobe nodule
Per CT chest 12/04/2024
Hyperlipidemia
History of smoking
Plan/recommendations
At this time, patient appears to be comfortable
Chest tube without airleak, placed 12/14 per IR
Splinting on exam noted
Chest x-ray without pneumothorax per my review
Chest exam is clear, poor inspiratory effort
Patient is aware of her right lung nodule
Moving forward
Continue with management per CT surgery
Chest tube management per CT surgery, IR
Aspirin therapy per CT surgery
Weaned off pressors
Splinting on exam noted
Pain control
1.2 cm right middle lobe nodule noted. Coronary CT
Reviewed with patient. She is a lifelong non-smoker
However, discussed possibly of cancer therefore follow-up will be important
Would recommend follow-up imaging plus minus PET scan. Information left in chart
She is aware of importance of follow-up to rule out malignancy, nods in agreement
I did call her son to review the above, given the patient is receiving pain medication
I spoke with Pal. He states that she does have a history of smoking in the past, not smoking currently
Discussed possibly of lung cancer
Discussed importance of identifying sooner rather than later given possibly of cure versus no cure
He understands importance of follow-up. Information left in chart
Patient transferred out of ICU. We will sign off. Please call with questions
Subjective Dataa
Subjective Data
Date of Service:
Date of Service: December 15, 2024
Subjective:
Patient is sitting in chair. She is comfortable. She is splinting. Chest tube placed yesterday, resolution of pneumothorax. She denies nausea
Objective Data
Data Reviewed
Vital Signs / I&O / Oxygen:
Vital Signs
Temp Pulse Resp BP Pulse Ox
98.8 F 73 18 108/71 95
12/15/24 03:45 12/15/24 06:30 12/15/24 03:45 12/15/24 04:00 12/15/24 06:00
Intake and Output
12/14/24 12/15/24 12/16/24
06:59 06:59 06:59
Intake Total 302.7 / 302.7 1890 / 1890
Output Total 1715 / 1715 2745 / 2745
Balance -1412.3 / -1412.3 -855 / -855
SaO2 [CPAP] 97
SaO2 [SIMV] 94
SaO2 95
Nasal Cannula flow liters per 2
minute
Physical Exam
General: Comfortable and Other (IJ, chest tube)
HEENT: Normocephalic and Anicteric
Cardiovascular: S1-S2, Regular Rhythm, Murmur (n) and Rub (n)
Respiratory: Wheeze (n), Crackles (n), Rhonchi (n), Non-Labored Respirations and Chest Tube
GI: Soft, Non Distended and Non Tender
Neurology: Awake, Alert and No Motor Deficits (Moving extremities)
Skin: Good Color and Rash (n)
Labs/Micro/Reports
Lab Data
12/15/24 03:53
12/15/24 03:53
--- NOTE | 2024-12-15 07:40 | W.PN.CD ---
Today's Communication / Plan
-
Repeat furosemide 40 mg IV again this morning.
Chest tube management per CT surgery.
Ambulate.
Incentive spirometry.
Impression / Plan
-
Impression/Plan: 59 y/o female with HLD, non-obstructive CAD and severe admitted for elective SAVR.
#Severe aortic valve stenosis
-Chronic, progressive.
-S/P SAVR (#23 [place]low Inspiris Resilia Aortic Valve, SN [id number]) and Monica aortic root enlargement with bovine pericardial patch (SN [id number]) with Dr. Irizarry, 12/12/2024.
-Encourage incentive spirometry.
-Ambulate.
-Continue amiodarone, aspirin, metoprolol.
-Pain/chest tube management per CT surgery.
-Furosemide 40 mg IV again this morning.
#PTX
-Acute, improved after pigtail placement.
-Management per CT surgery.
#HLD
-Chronic, stable.
-Continue atorvastatin.
-Goal LDL < 55.
#CAD
-Chronic, non-obstructive.
-Continue aspirin, metoprolol, atorvastatin.
Subjective/Interval History:
Right apical PTX resolved with placement of pigtail catheter, currently at -20 cmH2O.
Weight is down 1.1 kg from yesterday, 3.2 kg from apex. She is still 3.2 kg from her baseline (currently 89.9 kg, baseline 86.7 kg).
H/H stable.
SaO2 = 95% on 2LNC.
DATA:
Cardiac Catheterization, 11/27/2024:
CORONARY ANGIOGRAPHY
Dominance: right
LM: large and normal
LAD: large vessel giving rise to a moderate caliber D1, small D2, and small D3. There are trivial luminal irregularities.
LCx: large vessel giving rise to a small OM1, large OM2, and moderate caliber OM3. There are trivial luminal irregularities.
RCA: large vessel giving rise to a large RPDA and very large RPL branch. There is mild non-obstructive disease.
Intraprocedural LAYO, 12/12/2024:
CONCLUSIONS
Severe aortic stenosis, severely calcified valve and annulus, trivial to mild
aortic regurgitation. Annulus 22 mm.
Normal left ventricular size and systolic function, mild LVH, stage I diastolic
function.
The aorta has atheroma less than 5 mm and mild calcifications.
Trace MR. Trace TR.
POST OPERATIVE FINDINGS
Status post aortic root enlargement and aortic valve replacement with 23 mm
bioprosthetic aortic valve. The valve is well-seated, no perivalvular leak,
leaflets are functioning well, mean gradient 7 mmHg. No intra valvular
regurgitation.
Hyperdynamic left ventricle with EF 70 to 75%, no regional wall motion
abnormalities seen.
Normal right ventricular size and function.
Trivial to mild MR and TR. The rest of the study is unchanged.
Physical Exam
Vital Signs/Labs
Vital Signs
Temp Pulse Resp BP Pulse Ox
37.1 C 73 18 108/71 95
12/15/24 03:45 12/15/24 06:30 12/15/24 03:45 12/15/24 04:00 12/15/24 06:00
12/13/24 12/14/24 12/15/24
11:59 11:59 11:59
Actual Weight 93.1 kg 91 kg 89.9 kg
12/15/24 03:53
12/15/24 03:53
PT 17.4 Sec (11.4-14.6) H 12/12/24 12:13
INR 1.37 12/12/24 12:13
APTT 29.2 Sec (23.4-35.0) 12/12/24 12:13
Magnesium 2.5 mg/dl (1.6-2.3) H 12/15/24 03:53
Physical Exam
Constitutional: No acute distress and Comfortable
EENT: Anicteric and Moist mucous membranes
Cardiovascular: Rhythm & rate is regular, Pedal edema is absent, JVD pressure is normal, S1S2 is normal and Murmur/rub/gallop absent
Respiratory: Respiratory effort normal, Lungs clear to auscul., Wheeze Absent, Crackles Absent and Rhonchi Absent
GI: Soft, Distention absent, Flat, Non tender and Normal bowel sounds
Neuro/Psych: AO x 3
Data Reviewed
-
Date of Service: December 15, 2024
Medical Decision Making: Reviewed Test Results, Independent Historian Assessment, Test Interpretation and Review of Case with other Provider
EKG: Tracing Personally Visualized and interpreted and Report Reviewed by me
Echo: Report Reviewed by me
X-Ray/CT/US/MRI/NUC/PET: Image Personally Visualized and interpreted and Report Reviewed by me
Medical Tests (PFT, Pathology etc): Report Reviewed by me
Labs: Labs Reviewed by me
Old Records: Reviewed
[2024-12-15] MEDS: NSS IV (07:56)
[2024-12-15] MEDS: LOPRESSOR 12.5 MG PO ×2 (07:56→19:57)
[2024-12-15] MEDS: LOW STRENGTH ASPIRIN 81 MG PO (07:56)
[2024-12-15] MEDS: PROTONIX 40 MG PO (07:56)
[2024-12-15] MEDS: PACERONE 200 MG PO ×3 (07:56→21:52)
[2024-12-15] MEDS: NEURONTIN 100 MG PO ×3 (07:56→21:52)
[2024-12-15] MEDS: VITAMIN D3 (cholecalciferol) 125 MCG PO (07:56)
[2024-12-15] MEDS: SENOKOT-S 1 TABLET PO ×2 (07:56→19:58)
[2024-12-15] MEDS: LIDOCAINE 4% PATCH 1 PATCH TOPICAL (07:56)
[2024-12-15] MEDS: BACTROBAN 2% OINTMENT 1 APPLIC NASAL ×2 (07:57→19:57)
--- NOTE | 2024-12-15 09:21 | PTCARENOTE ---
assumed care of pt from previous shift RN, sinus rhythm on tele w + peripheral pulses, trace edema to lower extremities. Lungs diminished d/t poor effort. +bs, tolerating PO intake, voids spontaneously. Surgical sites stable, Right CT to H20 seal.
Pt is refusing pain medication. plan of care reviewed w the pt and questions encouraged.
[2024-12-15] MEDS: LASIX 40 MG IV (11:14)
--- NOTE | 2024-12-15 12:57 | PTCARENOTE ---
VSS, sinus rhythm maintained on tele.
[2024-12-15] MEDS: FERRLECIT 110 MG IV (15:39)
--- NOTE | 2024-12-15 17:00 | PTCARENOTE ---
CT removed by CT KLAUS. VSS, sinus rhythm maintained on tele.
--- NOTE | 2024-12-15 17:45 | W.PN.UPDATE ---
Update Note
Progress Note Update
Right pleural chest tube placed to water seal at 0700. Repeat chest x-ray at 0900 without pneumothorax. Chest tube clamped per discussion with Dr. Irizarry. Repeat chest x-ray at 1200 without pneumothorax and chest drain pulled without difficulty.
Patient reports breathing easier and was able to ambulate in halls with nursing staff.
[2024-12-15] MEDS: KCL 20 MEQ PO (20:03)
--- NOTE | 2024-12-15 20:10 | PTCARENOTE ---
Received pt from [facility]. Walking rounds completed. Pt assessment completed in bed. Pt is AAOX4. No neuro deficits noted. NSR on monitor. HR 80's, B/P 113/77. Lungs clear, diminished, neg cough. I/S 1500. NBS, abdomen round, soft, non-tender to
touch. Sternal incision MEDICAL AUDITOR, approximated. C/T sites MEDICAL AUDITOR, intact. R apical dressing C/D/I. R 20g PVA flushes, no redness or edema noted. Discussed plan of care with patient. Pt agrees with plan. Will Continue to monitor pt needs.
[2024-12-15] MEDS: DULCOLAX 5 MG PO (21:51)
[2024-12-15] MEDS: LIPITOR 40 MG PO (21:52)
[2024-12-15] MEDS: LINZESS 290 MCG PO (21:52)
--- NOTE | 2024-12-15 23:40 | PTCARENOTE ---
VSS. NSR on monitor. HR 60's. B/P 108/79. POX 93% RA. Pm care provided. Pt resting in bed. Will continue to monitor pt needs.
[2024-12-16 02:35] VITALS: BMI 33.3
[2024-12-16 02:39] LABS: Hematocrit 32.2 % (37.0-47.0); Hemoglobin 10.9 g/dL (12.0-16.0); Mean Corp Hgb Conc. 33.9 g/dL (33.0-37.0); Mean Corpuscular Hgb 31.2 pg (27.0-31.0); Mean Corpuscular Volume 92.3 fL (81.0-99.0); Mean Platelet Volume 10.1 fL (7.4-10.4); Platelet Count 255 10^3/uL (130-400); Red Blood Cell Count 3.49 10^6/uL (4.20-5.40); Red Cell Dist. Width 13.1 % (11.5-14.5); White Blood Cell Count 13.6 10^3/uL (4.8-10.8)
[2024-12-16 02:53] LABS: Blood Urea Nitrogen 27 mg/dl (7-17); Carbon Dioxide 31 mmol/L (22-30); Chloride 97 mmol/L (98-107); Estimated Creatinine Clearance 72 ml/min; Glucose 94 mg/dl (70-99); Magnesium 2.4 mg/dl (1.6-2.3); Potassium 3.9 mmol/L (3.5-5.1); Sodium 138 mmol/L (135-145); eGFR > 60.00
[2024-12-16 03:58] VITALS: BP 109/70
--- NOTE | 2024-12-16 04:02 | PTCARENOTE ---
VSS. NSR on monitor. HR 67, B/P 109/70. POX 93% 2LNC. Morning labs obtained and sent. Weight obtained. Pt resting in bed. Will continue to monitor pt needs.
--- NOTE | 2024-12-16 04:57 | W.PN.CT ---
Today's Communication / Plan
-
Plan:
-No major issues overnight. Hemodynamically and neurologically intact
-Pt's postop right pneumothorax resolved with chest tube removed yesterday 12/15 without incident
-F/U 2-view cxr today
-Cont. current meds (ASA, Lipitor, Amiodarone, Lopressor, Protonix)
-Cont. diuresis, wt up
-Mg is 2.4, mag oxide on hold
-Encourage use of IS
-OOB into chair/Ambulate
-Home today
Assessment / Plan
-
- Symptomatic aortic valve stenosis with bicuspid valve morphology- s/p Aortic root enlargement and aortoplasty (Monica); Aortic valve replacement [23 mm QIU Inspiris Resilia bioprosthesis]
by Dr. Irizarry on 12/12/24, pod #4
- Intraop LAYO: LVEF preop was normal at 60% with no significant regional wma. She did have mild left ventricular hypertrophy and her mean gradient under anesthesia was over 40 mmHg. Following surgery, EF was 65 to 70%, she was hyperdynamic with no
new regional wma. After coming off cardiopulmonary bypass, there was no paravalvular leak. The mean gradient while she was hyperdynamic was 11 mmHg, which then calm down to 7 mmHg at the end of the case.
- Bicuspid aortic valve morphology with severe aortic valve stenosis, symptomatic
- Nonobstructive CAD
- Hypertension
- Hyperlipidemia
- Class 1 obesity, BMI 33
- Anxiety/depression
- Diastolic dysfunction with mild left ventricular hypertrophy
- Preop Klebsiella UTI - treated with Augmentin
- Acute postop blood loss anemia - stable, no transfusion
- Acute postop atelectasis
- Acute postop hypovolemia with subsequent hypervolemia
- Acute postop R PTX S/P right 12F pigtail chest tube placement by IR, 12/14/24; chest tube d/c'd 12/15/24 without incident
Discussed patient care with: Cardiology, Nursing, Respiratory Therapy, Pharmacy and Care Team
Subjective
Procedure
s/p Aortic root enlargement and aortoplasty (Monica); Aortic valve replacement [23 mm QIU Inspiris Resilia bioprosthesis]
by Dr. Irizarry on 12/12/24
-
Date of Service: December 16, 2024
Pt c/o mild incisional pain, otherwise feels well. Ambulating halls without difficulty
Objective Data
-
Lab Results
12/16/24 02:28
12/16/24 02:28
PT 17.4 Sec (11.4-14.6) H 12/12/24 12:13
INR 1.37 12/12/24 12:13
APTT 29.2 Sec (23.4-35.0) 12/12/24 12:13
Vital Signs
Vital Signs
Temp Pulse Resp BP Pulse Ox
99.1 F 70 18 109/70 94
12/16/24 03:58 12/16/24 03:58 12/16/24 03:58 12/16/24 03:58 12/16/24 03:58
CT Intake/Output/Weight
12/15/24 12/15/24 12/16/24
06:59 18:59 06:59
Intake Total 1170 / 1890
Output Total 635 / 2745 3700 / 3700
Balance 535 / -855 -3680 / -3680
SaO2: 94 (RA)
Physical Exam
-
General: Awake, Oriented and AOx3
Cardiovascular: Regular rate & rhythm, No Murmurs, No Rub and No Gallop
Respiratory: Decreased Breath Sounds
Sternum: Stable
Incision: Clean, Dry, Intact and Dressing Intact
Extremities: Other (+trace edema)
Data Reviewed
-
Lab Results: Results Reviewed
Medications: Active Meds Reviewed
Chest X-Ray: Report Reviewed and Image Reviewed
ECG: Report Reviewed and Image Reviewed
[2024-12-16 05:27] VITALS: BP 102/64
[2024-12-16] MEDS: TYLENOL 1000 MG PO (05:27)
[2024-12-16] MEDS: LASIX 20 MG IV (05:27)
[2024-12-16] MEDS: KCL 40 MEQ PO (05:27)
[2024-12-16 08:28] VITALS: BP 133/76
[2024-12-16] MEDS: NEURONTIN 100 MG PO (09:26)
[2024-12-16] MEDS: SENOKOT-S 1 TABLET PO (09:26)
[2024-12-16] MEDS: PROTONIX 40 MG PO (09:26)
[2024-12-16] MEDS: PACERONE 200 MG PO (09:26)
[2024-12-16] MEDS: LOPRESSOR 12.5 MG PO (09:26)
[2024-12-16] MEDS: BACTROBAN 2% OINTMENT 1 APPLIC NASAL (09:27)
[2024-12-16] MEDS: LIDOCAINE 4% PATCH 1 PATCH TOPICAL (09:27)
[2024-12-16] MEDS: NSS IV (09:27)
[2024-12-16] MEDS: VITAMIN D3 (cholecalciferol) 125 MCG PO (09:27)
[2024-12-16] MEDS: LOW STRENGTH ASPIRIN 81 MG PO (09:27)
[2024-12-16] MEDS: MILK OF MAGNESIA 30 ML PO (09:30)
--- NOTE | 2024-12-16 10:09 | W.DCSUMMARY ---
Discharge Summary
Discharge Data
Date of Admission: 12/12/24
Date of Discharge: 12/16/24
-
Pending Results: No
Hospital Course
Primary care physician: Tanvi Armas
Outpatient bran mixer: Ricky Vieyra
Inpatient consultants: [facility] cardiology, Pulmonary Cork Pressing Machine Operator, Interventional Radiology
Procedures:
1. Aortic valve replacement, aortic root enlargement and aortoplasty
Primary Diagnosis:
1. Aortic valve stenosis with bicuspid valve morphology
Secondary Diagnoses:
1. Nonobstructive CAD
3. Hypertension
4. Hyperlipidemia
5. Class 1 obesity (BMI 33)
6. Anxiety/depression
7. Diastolic dysfunction (Stage 1) with mild left ventricular hypertrophy
8. Preop Klebsiella UTI - treated with Augmentin
9. Acute postop blood loss anemia - expected, no transfusion
10. Acute postop right pneumothorax S/P right 12F pigtail chest tube placement by IR, 12/14/24; chest tube d/c'd 12/15/24
11. Acute post-op hypervolemia
HPI: 59-year-old female was electively admitted on 12/12/2024 for aortic valve replacement due to bicuspid valve with aortic stenosis
Hospital course: Patient underwent an AVR #23 Inspira's tissue valve and root enlargement with aortoplasty ([place]) by Dr. Ferny Irizarry. Patient received no intraoperative blood products. Postprocedure LAYO reported an EF of 70-75% with AV
mean gradient of 7 mmHg. Patient returned to CVICU on Levophed, Precedex, and insulin. Patient was extubated at 1600 on day of surgery. Patient was noted to have a small right pneumothorax on postoperative day #1 and high flow oxygen was
instituted and attempt to reduce pneumothorax. On postoperative day #2 pneumothorax remained unchanged on morning x-ray and patient went to interventional radiology for pigtail chest tube placement. Her epicardial ventricular wires and mediastinal
chest tubes were removed. On postoperative day #3, the pneumothorax resolved. Chest tube was placed to waterseal with no pneumo thorax noted on subsequent x-ray. Chest tube was unclamped and again no pneumothorax was noted on subsequent x-ray. A
chest tube was removed without incident. Patient received Lasix 40 mg IV and diuresed 4700 cc of urine in 24 hours. Weight decreased to 88 kg and baseline weight was 86.7 kg. Patient will be discharged on Lasix 20 mg daily x 5 days then
instructed to take as needed for weight gain more than 2 pounds in a day or 5 pounds in a week. Follow-up two-view chest x-ray was stable. Hemoglobin was 10.9 and creatinine 0.9 on day of discharge. Patient experienced no postoperative atrial
fibrillation and prophylactic amiodarone was discontinued. Patient will be seen in follow-up by transitional nurses with BMP needed in 1 week post discharge.
Home medication changes: none
Additions:
Gabapentin for nerve pain will continue for 10 days after discharge
Oxycodone prescription for 10 pills as needed for severe pain after discharge
Lasix 20 mg p.o. daily x 5 days then as needed weight gain more than 2 pounds in a day or 5 pounds in 1 week
Discharge Plan
-
Patient Disposition: Home (Routine Discharge)
Discharge Diagnosis/Procedures: aortic stenosis/aortic valve replacement w/root enlargement
Condition: Good
Diet: Low Cholesterol and 2 Gram Sodium
Activity: No strenuous activity
Driving Restrictions: Not until seen by your Dr
Bathing Restrictions: OK to Shower
Blood Work: BMP in 1 week
Other Services: Cardiac Rehab
Specialty Instructions: Weigh Daily- Call MD for wt gain/loss 3 lbs overnight/5 lbs in 1 week
Activity Restrictions/Additional Instructions:
Please call [facility] to get scheduled. P: [phone]
Referrals:
CT Transitional Care Nurse [Outside] (The Cardiothoracic Transitional Care Nurse will call you to set up a visit in 1-2 days.)
Vadim Mendieta MD [Active] -
(Follow-up imaging for pulmonary nodule right lung
need to be followed to rule out cancer.
Please confirm appt at [facility] ([facility])
Consider PET scan with pulmonary visit within the next 2 to 4 weeks post discharge)
Tanvi Hess MD [Family Provider] -
Ricky Vieyra MD [Active] - 01/24/25 12:00 pm
Ferny Irizarry MD [Active] - 01/14/25 11:30 am
Prescriptions:
New
acetaminophen 325 mg Tablet
650 mg PO Q4HPRN PRN (Reason: mild pain,headache,temp >101F ) Qty: 0 0RF
gabapentin 100 mg Capsule
100 mg PO TID Qty: 30 0RF
oxycodone 5 mg Tablet
5 mg PO Q6HPRN PRN (Reason: severe pain) Qty: 10 0RF
furosemide [Lasix] 20 mg tablet
20 mg PO DAILY Qty: 10 0RF
Rx Instructions:
1 tab daily x 5 days, then 1 tab daily as needed for weight gain > 2 lbs/day or 5 lbs/week
Continued
nebivolol 5 mg Tablet
5 mg PO DAILY
atorvastatin 40 mg Tablet
40 mg PO HS
aspirin 81 mg Tablet,Chewable
81 mg PO HS
alprazolam 0.5 mg Tablet
0.5 mg PO HS
valerian root 100 mg Capsule
100 mg PO HS
Linzess 290 mcg Capsule
290 mcg PO HS
cholecalciferol (vitamin D3) [Vitamin D3] 125 mcg (5,000 unit) Tablet
5,000 unit PO DAILY
cranberry extract 250 mg Tablet
250 mg PO DAILY
bisacodyl 5 mg Tablet
5 mg PO HS
Discharge Orders:
Discharge Patient (As Directed); Ordered 12/16/24
Ordered By: Nereida Nielsen
Care Plan Goals
Care Plan Goals:
Problem: Readiness for enhanced knowledge related to diagnosis and treatment plan
Goal: Understand your diagnosis and treatment plan needs, including medications if applicable.
Instructions: Know your diagnosis, underlying causes and treatment plan options, including medications if applicable. Consult with your health care team to learn about your diagnosis and treatment plan, including medications if applicable.
Discharge Date and Time
Print Language: Indonesian
--- NOTE | 2024-12-16 10:22 | PTCARENOTE ---
assumed care of pt from previous shift RN, sinus rhythm on tele, VSS. Surgical sites stable. 2 view CXR completed. Plan of care reviewed w the pt and questions encouraged.
--- NOTE | 2024-12-16 12:30 | PTCARENOTE ---
Pt tolerated shower. IV line and tele monitor discontinued. Discharge instructions, medication list and follow up appointments reviewed w the pt. Questions encouraged.
== END 2024-12-16 12:31 | disposition home or self-care (01) | DRG 220 ==
LOC: CVICU 04:59
PROVIDERS: Anesthesiology; Clinical Nurse Specialist Acute Care; Physician Assistant Medical; Radiology Diagnostic Radiology; ADMITTING PHYSICIAN Thoracic Surgery (Cardiothoracic Vascular Surgery); CONSULT PHYSICIAN Internal Medicine; CONSULT PHYSICIAN Internal Medicine Critical Care Medicine; FAMILY PHYSICIAN Internal Medicine
PROC: 5A1221Z Performance of Cardiac Output, Continuous (ICD-10-PCS; 2024-12-12)
PROC: 02UX08Z Supplement Thoracic Aorta, Ascending/Arch with Zooplastic Tissue, Open Approach (ICD-10-PCS; 2024-12-12)
PROC: 02RF08Z Replacement of Aortic Valve with Zooplastic Tissue, Open Approach (ICD-10-PCS; 2024-12-12)
PROC: B24BZZ4 Ultrasonography of Heart with Aorta, Transesophageal (ICD-10-PCS; 2024-12-12)
PROC: 0W9930Z Drainage of Right Pleural Cavity with Drainage Device, Percutaneous Approach (ICD-10-PCS; 2024-12-14)
DX: I35.2 Nonrheumatic aortic (valve) stenosis with insufficiency (principal); D62 Acute posthemorrhagic anemia; J95.811 Postprocedural pneumothorax; J98.11 Atelectasis; E86.1 Hypovolemia; E87.70 Fluid overload, unspecified; Y83.8 Other surgical procedures as the cause of abnormal reaction of the patient, or of later complication, without mention of misadventure at the time of the procedure; I25.10 Atherosclerotic heart disease of native coronary artery without angina pectoris; N18.9 Chronic kidney disease, unspecified; I12.9 Hypertensive chronic kidney disease with stage 1 through stage 4 chronic kidney disease, or unspecified chronic kidney disease; E78.5 Hyperlipidemia, unspecified; F32.A Depression, unspecified; F41.9 Anxiety disorder, unspecified; Z68.33 Body mass index [BMI] 33.0-33.9, adult; E66.811 Obesity, class 1; Z87.891 Personal history of nicotine dependence
CPT/HCPCS: 88305; 88311; 32557; 36415; 71045; 71046; 80048; 80053; 81003; 81015; 82248; 82330; 82565; 82805; 82810; 82947; 82962; 83036; 83735; 84132; 84302; 84520; 85014; 85018; 85025; 85027; 85049; 85610; 85730; 86850; 86900; 86901; 86920; 87070; 87077; 87086; 87186; 93005; 93312; 93320; 93325; 93880; 94002; 99152; C1729; C1768; C1769; J2916; P9045